=== PATIENT | male | born 1950 | race Caucasian/White ===

== ENCOUNTER → 2016-06-02 | Outpatient (CLI) | payer BC, OTHER ==
[~2016-06-02] VITALS: Ht 177.8 cm; Wt 134.1 kg
[~2016-06-02] MED LIST: ADULT LOW DOSE81 MG PO; ALLEGRA ALLERG180 MG PO; COUMADIN 1MG TAB1 M1 PO; COUMADIN 2 MG TA2 M1 PO; COUMADIN 5 MG TA5 M1 PO; COUMADIN7.5 MG PO; ENOXAPARIN30 MG/0.3 SQ; FLEXERIL PO; GABAPENTIN100 MG PO; HYDROCODON-ACE1 EAC5 PO; HYDROCODON-ACE1 EAC7 PO; HYDROCODON-ACE1 EACH PO; HYDROCODONE-AP1 EA11 PO; HYDROCODONE-AP1 EAC6 PO; HYDROCODONE-AP1 EACH PO; IBUPROFEN 200200 M1 PO; JANTOVEN1 MG PO; JANTOVEN5 MG PO; LISINOPRIL10 MG PO; LISINOPRIL20 MG PO; LOVENOX; MUCINEX DM ER1 EACH PO; OXYCODONE-ACET1 EAC2 PO; OXYCONTIN10 M1 PO; SINGULAIR 10 MG10 M1 PO; VITAMIN D1000 UNI1 PO; ZOHYDRO PO; [UNRECOGNIZED DRUG - OTHER] PO
--- NOTE | ~2016-06-02 | HPC ---
[facility] [place] [address] [place] [address] PAIN MANAGEMENT CONSULTATION Name: NEYMAR CARMICHAEL II Room #: REG [facility] Aman#: [id number] Admission: 06/02/16 Attend Phys: Trevor Frausto MD Discharge: Date of : 48 Report #: [id number] THIS REPORT FOR: //name// CC: Patrizia Frausto DATE OF SERVICE: 06/02/2016 REASON FOR VISIT: Followup visit for low back pain with left lumbar radiculopathy. HISTORY OF PRESENT ILLNESS: The patient returns to pain clinic today for an epidural injection. He has discontinued Coumadin. His INR is 1.1. He also has cardiolipin antibody syndrome related to lupus anticoagulation disorder and is prone to thrombosis. We discussed the importance of reinitiating his anticoagulation as soon as possible following the injection. He will begin his Coumadin today and has 1 more dose of Lovenox to take tonight. I also discussed his upcoming knee replacement. He has severe osteoarthritis of the left knee and also will be performing surgery at the orthopedic institute in about 5 weeks. The epidural injection today should be far enough away from a surgery that I do not think will need to have a steroid replacement. He is hopeful that the improvement in his sciatica that occurs following his epidural injection will allow him to improve in his rehabilitation. All medications were reviewed and reconciled. He receives medication from outside under terms of an opioid agreement, which was reviewed and resigned today. It has been over a year. He uses hydrocodone up to 4 a day. We would like him to continue with that dose. No other medication changes since his last visit. MEDICATION ALLERGIES: Include SHELLFISH and MILK CONTAINING PRODUCTS which caused GI upset. We will avoid the use of iodinated contrast materials for his injections. PHYSICAL EXAMINATION: A very pleasant 65-year-old. His blood pressure is 149/91, heart rate 91. His BMI is 42.2. He moves from a sitting to standing position, walks with a cane. There is a fall risk. He has straight leg raising discomfort on the left, which also reproduces pain in his left knee. Sensation is diminished in the lower extremities bilaterally. He has focal weakness in the left thigh, which I believe is related to from the quadriceps and his knee. IMPRESSION: 1. Chronic low back pain with radiculopathy on the left L4-L5. [facility] [address] [place] [address] PAIN MANAGEMENT CONSULTATION Name: NEYMAR CARMICHAEL II Room #: REG CHI Newton#: [id number] Admission: 06/02/16 Attend Phys: Trevor Frausto MD Discharge: Date of : 48 Report #: [id number] 2. Morbid obesity. 3. Osteoarthritis, bilateral knees, left worse than right, anticipated upcoming knee surgery replacement. 4. Management of high risk medication with the terms of an opioid agreement under the CDC guidelines. PLAN: 1. I renewed his medications, hydrocodone 10/325 one tablet 4 times daily. All aspects of our agreement reviewed. 2. Epidural steroid injection under fluoroscopic guidance. DESCRIPTION OF PROCEDURE: He was taken to the fluoroscopy suite for treatment and placed prone. Skin prepped with ChloraPrep and skin anesthetized over the L4-L5 interspace. Using biplanar fluoroscopic views, I advanced the needle into the epidural space. There was no blood or CSF aspirated. A 1 mL of Omnipaque injected demonstrating good spread of dye into the epidural space. It was followed then by 3 mL of 0.5% lidocaine mixed with 80 mg of triamcinolone. He tolerated the procedure well, was observed for 45 minutes and discharged. There were no complications. He was discharged and we will see him after surgery. By: [id number] Trevor Frausto MD /nt
[2016-06-02 09:32] LABS: INR 1.1; PROTIME 11.4 Seconds (9.3-11.4)
[2016-06-02 09:43] VITALS: BP 149/91
== END | disposition home or self-care (01) ==
LOC: PAIN 06:35
PROVIDERS: Anesthesiology Pain Medicine
DX: M54.16 Radiculopathy, lumbar region (principal); G89.29 Other chronic pain; M17.0 Bilateral primary osteoarthritis of knee; E66.01 Morbid (severe) obesity due to excess calories; F11.20 Opioid dependence, uncomplicated; Z68.41 Body mass index [BMI] 40.0-44.9, adult

== ENCOUNTER → 2016-08-04 | Outpatient (CLI) | payer BC, OTHER ==
[~2016-08-04] VITALS: Ht 180.3 cm; Wt 133.8 kg
--- NOTE | ~2016-08-04 | HPC ---
[facility] [address] [place] [address] [place] [address] PAIN MANAGEMENT CONSULTATION Name: NEYMAR CARMICHAEL II Room #: REG [facility].#: [id number] Admission: 08/04/16 Attend Phys: Trevor Frausto MD Discharge: Date of : 48 Report #: [id number] THIS REPORT FOR: //name// CC: Patrizia Frausto DATE OF SERVICE: 08/04/2016 DATE OF REGISTRATION: 08/04/2016. SUBJECTIVE: The patient returns to pain clinic today. Unfortunately, he was unable to undergo his knee replacement surgery due to an elevated white count. He has been rescheduled. 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 He is prone to thrombosis. There are a number of considerations being undertaken prior to his surgery. He seems a little bit depressed today. I think that the ongoing pain and the lack of ability to undergo surgery worried him. He complains that his back pain is about 3, but his knee pain is 10/10. Medication has been helpful for that. PHYSICAL EXAMINATION: VITAL SIGNS: Continues to struggle with weight, BMI is now 41.2. Blood pressure is 148/95, heart rate 86, respirations 16. He is 5 feet 11 inches (180 cm) and 295 pounds. EXTREMITIES: Both knees are being protected, bilateral braces. There is tenderness and swelling. IMPRESSION: 1. Chronic back pain with radiculopathy. 2. Morbid obesity. 3. Osteoarthritis, bilateral knees with left knee the worst. Surgery for total knee replacement scheduled once again. 4. Management of high-risk medications under terms of an opioid agreement. PLAN: I renewed hydrocodone 10/325 one tablet 4 times a day. We talked about the opioid crisis, safeguarding medications, receiving medications from one physician and one pharmacy. Urine drug screens will be performed as necessary. Followup visit planned in 3 months. By: [id number] Trevor Frausto MD /nt
[2016-08-04 14:28] VITALS: BP 148/95
== END | disposition home or self-care (01) ==
LOC: PAIN 07:08
DX: M54.16 Radiculopathy, lumbar region (principal); G89.29 Other chronic pain; M17.0 Bilateral primary osteoarthritis of knee; F11.20 Opioid dependence, uncomplicated; E66.01 Morbid (severe) obesity due to excess calories; Z68.41 Body mass index [BMI] 40.0-44.9, adult

== ENCOUNTER → 2016-09-01 | Outpatient (CLI) | payer BC, OTHER ==
[~2016-09-01] VITALS: Ht 180.3 cm; Wt 133.4 kg
--- NOTE | ~2016-09-01 | HPC ---
[facility] [address] [address] PAIN MANAGEMENT CONSULTATION Name: NEYMAR CARMICHAEL II Room #: REG LINDSEYJoseline Holder.#: [id number] Admission: 09/01/16 Attend Phys: Trevor Frausto MD Discharge: Date of : 48 Report #: [id number] THIS REPORT FOR: //name// CC: Patrizia Frausto DATE OF SERVICE: 09/01/2016 Followup visit for bilateral osteoarthritis of the knees and low back pain with radiculopathy. The patient returns to pain clinic today for an epidural injection. This has been very helpful for his spondylosis and spinal stenosis with radiculopathy. He also had questions for me regarding potential treatments for his knees. He was seen at a [facility] in [place] and they offered him amniotic fluid stem cell injections. This is not covered by insurance and the cost projected was $13,000. The science is interesting. My partner and I are both interested in it; however, at this time, we are not certain whether or not stem cells derived from bone marrow, adipose tissue or amniotic stem sells may provide the best avenue. We are also concerned by the cost of this procedure given that it has not been vetted fully in the medical community. Essentially rolling a $13,000 instead of dice to determine whether or not it will provide lasting relief. I did acknowledge that the likelihood of there would be a negative consequence from the injection is small, but the retirement benefits are certainly anecdotal at this point or related to small studies. If he wants to spend this money on it, he is welcome to do so, but I told him that at this point if I were in the shoes for wearing his knees, I would be reluctant to do so. He sees Dr. Bonnie Delarosa who has offered replacement surgery for each knee, so they have progressed fairly significantly. He has been reluctant to go forward with that. He is 65 years of age. I do not think that longevity of the joint is necessarily consideration and many individuals have benefitted from knee replacement. Men seemed to do better than women. We spent some time discussing that option as well. His low back pain with radiculopathy has always responded very favorably to epidural injection at L4-L5. He has cardiolipin antibody syndrome, has been on anticoagulation therapy, which he discontinued for appropriate amount of time for his injection. Protime is 1.0. PHYSICAL EXAMINATION: Pleasant, outgoing jabari, walks with antalgic features. He has soft braces on both knees today. He ambulates with antalgic features. Pain and tenderness across his low back, positive straight leg raising is noted. He [address] [address] PAIN MANAGEMENT CONSULTATION Name: NEYMAR CARMICHAEL II Room #: REG [facility] Newton#: [id number] Admission: 09/01/16 Attend Phys: Trevor Frausto MD Discharge: Date of : 49 Report #: [id number] is morbidly obese at 295 pounds. Blood pressure is 142/96, heart rate is 84, respirations 14. IMPRESSION: 1. Chronic low back pain with radiculopathy. 2. Morbid obesity. 3. Osteoarthritis, bilateral knees. 4. Management of high risk medications under terms of an opioid agreement. PLAN: Epidural steroid injection under fluoroscopic guidance. Procedure was performed. The patient was taken to fluoroscopic suite, placed prone. Skin prepped with ChloraPrep. Skin anesthetized over the L4-L5 interspace. A 20-gauge Tuohy epidural needle advanced first attempt in the epidural space with loss of resistance. No blood or CSF was aspirated. 1 mL of Omnipaque was injected and spread of dye observed in the epidural space followed by 3 mL of 0.5% lidocaine mixed with 80 mg of triamcinolone. He tolerated the procedure well, was observed for 45 minutes and discharged. Followup visit planned as needed. Hydrocodone was renewed for him under terms of an opioid agreement. Safeguarding of medication was reviewed. By: [id number] Trevor Frausto MD /nt
[2016-09-01 11:20] LABS: PROTIME 10.8 Seconds (9.3-11.4)
[2016-09-01 11:38] VITALS: BP 141/86
== END | disposition home or self-care (01) ==
LOC: PAIN 06:42
PROVIDERS: Anesthesiology Pain Medicine
DX: M54.16 Radiculopathy, lumbar region (principal); G89.29 Other chronic pain; M17.0 Bilateral primary osteoarthritis of knee; E66.01 Morbid (severe) obesity due to excess calories; F11.20 Opioid dependence, uncomplicated

== ENCOUNTER → 2016-10-27 | Outpatient (CLI) | payer BC, OTHER ==
[~2016-10-27] VITALS: Ht 180.3 cm; Wt 133.4 kg
--- NOTE | ~2016-10-27 | HPC ---
[facility] [address] [address] [place] [address] PAIN MANAGEMENT CONSULTATION Name: NEYMAR CARMICHAEL II Room #: REG [facility].#: [id number] Admission: 10/27/16 Attend Phys: Trevor Frausto MD Discharge: Date of : 49 Report #: [id number] THIS REPORT FOR: //name// CC: Patrizia Frausto DATE OF SERVICE: 10/27/2016 DATE OF REGISTRATION: 10/27/2016 Followup visit for osteoarthritis, bilateral knees. The patient returns to pain clinic today and we discussed his medication at length. I made an error at his last visit and did not sign his 4-week prescription. This led to a series of phone calls and miscommunication between him and our office. he uses appropriately. He uses it for pain. He is not addicted. He is grateful for the relief he gets. He has few side effects. He has been using 1 pharmacy except when he switched because of cost issues. His urine drug screens were appropriate for his current use. His daily dose of hydrocodone is 40 mg, which relates to morphine as 40 morphine mg equivalents well within the range of the CDC guideline. He is being treated appropriately at this time for his severe arthritis and is anxious for the time when he can have his knees replaced. Pain score today is 7/10. It is worse with prolonged sitting, walking and standing. PHYSICAL EXAMINATION: Pleasant, little bit depressed of affect today He is concerned about all the phone calls that were made because of the prescription error. I think we have clarified that now. His blood pressure is 149/83, pulse of 101, respirations 16. BMI is 41. He has braces on both knees, bilateral local tenderness. IMPRESSION: 1. Chronic osteoarthritis pain, bilateral knees. 2. Morbid obesity. 3. Low back pain with radiculopathy. 4. Management of high risk medication under terms of an opioid agreement. PLAN: I renewed his medications for 3 months. His current dose will be hydrocodone 10/325, #120 one tablet q. 6 hours p.r.n. as directed. I will see [facility] [address] [place] [address] PAIN MANAGEMENT CONSULTATION Name: NEYMAR CARMICHAEL Room #: REG [facility].#: [id number] Admission: 10/27/16 Attend Phys: Trevor Frausto MD Discharge: Date of : 49 Report #: [id number] him back in the pain clinic in December. Importance of safeguarding medication in today's world was reviewed as most important requirement. By: [id number] Trevor Frausto MD /nt
[2016-10-27 08:56] VITALS: BP 149/93
== END ==
LOC: PAIN 06:40
DX: M17.0 Bilateral primary osteoarthritis of knee (principal); M54.16 Radiculopathy, lumbar region; E66.01 Morbid (severe) obesity due to excess calories

== ENCOUNTER → 2016-11-24 | Outpatient (CLI) | payer BC, OTHER ==
[~2016-11-24] VITALS: Ht 180.3 cm; Wt 133.6 kg
--- NOTE | ~2016-11-24 | HPC ---
[facility] [address] [address] [place] [address] PAIN MANAGEMENT CONSULTATION Name: NEYMAR CARMICHAEL II Room #: REG [facility].#: [id number] Admission: 11/24/16 Attend Phys: Trevor Frausto MD Discharge: Date of : 48 Report #: [id number] THIS REPORT FOR: //name// CC: Patrizia Frausto DATE OF SERVICE: 11/24/2016 Followup visit for lumbar radiculopathy and osteoarthritis, bilateral knees. The patient is here today for another epidural injection. He has postponed his knee surgery. He got really good relief with the last injection provided at L5-S1 for nearly 2-1/2 to 3 months. It helps him get around and ambulate with less of the radicular component of his pain. I also provide him with medication under terms of an opioid agreement. He has been on his medication appropriately. He takes no more than 40 mg of hydrocodone a day on an as needed basis under the CDC guideline of 50 MME. Today, he reports his pain level at 8-9 in a radicular radiating component down the posterior lateral aspect of legs and his knees continue to create quite a bit of discomfort. Majority of his radicular pain is on the left. It radiates all the way to the foot. MEDICATIONS: Reviewed and reconciled. He has been off his blood thinner now for 1 week with an INR of 1.0. He has been on Lovenox and took a small dose of 30 mg over 12 hours ago. We have ____ his Lovenox for 12 hours at his current dose prior to his injection without difficulty. Potential risks and benefits were reviewed. IMPRESSION: 1. Low back pain with radiculopathy, left L5-S1 distribution. He also had some L3 pain as well. He has responded best with injections at L5-S1. 2. Morbid obesity. 3. Osteoarthritis, bilateral knees. 4. Management of high risk medications. PROCEDURE: Epidural steroid injection under fluoroscopic guidance. PROCEDURE NOTE: He was taken to the fluoroscopic suite, placed prone, skin prepped with ChloraPrep. Skin anesthetized over L5-S1. A 20-gauge Tuohy epidural needle advanced on the first attempt into the epidural space with loss of resistance. There was no blood or CSF aspirated. 1 mL of Omnipaque was injected with good spread of dye observed into the epidural space extending cephalad. It was followed by 3 mL of 0.5% lidocaine mixed with 80 mg of [facility] [address] [place] [address] PAIN MANAGEMENT CONSULTATION Name: NEYMAR CARMICHAEL II Room #: REG [facility] Aman#: [id number] Admission: 11/24/16 Attend Phys: Trevor Frausto MD Discharge: Date of : 48 Report #: [id number] triamcinolone. He tolerated the procedure well. He was observed for 45 minutes and discharged. Followup visit planned in the pain clinic as needed. I will continue to provide his medication for him under terms of our opioid agreement. By: [id number] Trevor Frausto MD /nt
[2016-11-24 09:47] LABS: PROTIME 10.4 Seconds (9.3-11.4)
[2016-11-24 10:10] VITALS: BP 124/81
[2016-11-24 10:12] VITALS: BP 124/81
== END | disposition home or self-care (01) ==
LOC: PAIN 07:00
PROVIDERS: Anesthesiology Pain Medicine
DX: M54.16 Radiculopathy, lumbar region (principal); M17.0 Bilateral primary osteoarthritis of knee; E66.01 Morbid (severe) obesity due to excess calories; Z79.891 Long term (current) use of opiate analgesic; Z79.01 Long term (current) use of anticoagulants; Z79.82 Long term (current) use of aspirin; Z79.899 Other long term (current) drug therapy; Z91.011 Allergy to milk products; Z98.890 Other specified postprocedural states

== ENCOUNTER → 2017-05-01 | Outpatient (CLI) | payer BC, OTHER ==
[~2017-05-01] VITALS: Ht 180.3 cm; Wt 137.0 kg
[~2017-05-01] MED LIST changes: +ZOLPIDEM TARTRA10 MG PO
--- NOTE | ~2017-05-01 | HPC ---
[facility] [address] [place] [address] PAIN MANAGEMENT CONSULTATION Name: NEYMAR CARMICHAEL II Room #: REG [facility] Susanne.#: [id number] Admission: 05/01/17 Attend Phys: Trevor Frausto MD Discharge: Date of : 48 Report #: [id number] THIS REPORT FOR: //name// CC: Patrizia Frausto DATE OF SERVICE: 05/01/2017 Followup visit for lumbar radiculopathy and osteoarthritis. The patient is here today in the pain clinic a bit discouraged because of recurring pain. He is here today for a lumbar epidural injection. He is continuing to have quite a bit of pain in his knees. He has had problems with DVT. Because of ongoing pain, he has had difficulty with his exercise program and has gained back much of the weight that he lost during his walking program described elsewhere in this record. He is discouraged about that. His hope is that he can continue to walk freely with minimal pain and to have his knees replaced. His ORT opioid risk tool assessment is 1 and his pain impact score is elevated somewhat to 58/70. It should be noted that his enjoyment of life interference from pain is 9/10 suggesting the significant manner in which this pain affects him. He would like an epidural steroid injection. MRI shows that he has extension of disk into the neural foramina at L4-L5 and L5-S1, which has responded nicely to midline epidural injection. PHYSICAL EXAMINATION: GENERAL: The patient is pleasant, alert and oriented, without signs of overmedication. His affect is mildly depressed today. VITAL SIGNS: His blood pressure is 138/93, respiratory rate is 16. He is able to move independently from sitting to standing position. He is not a fall risk, but he walks with a broad-based gait. Straight leg raising bilaterally is positive. He has diminished sensation below the knees in the L4 distribution. He has tenderness bilaterally around the knees and was wearing articulating braces. IMPRESSION: 1. Osteoarthritis of the knees bilaterally. 2. Lumbar radiculopathy. 3. Management of high risk medications under terms of written opioid agreement. We reviewed his agreement, the CDC guidelines. His MME is 40. He has a [place] address and fills his [place] in [place]. I did not perform a K-TRACS for that purpose. RECOMMENDATION: Epidural steroid injection under fluoroscopic guidance. [address] [address] PAIN MANAGEMENT CONSULTATION Name: NEYMAR CARMICHAEL II Room #: REG [facility] Newton#: [id number] Admission: 05/01/17 Attend Phys: Trevor Frausto MD Discharge: Date of : 48 Report #: [id number] PROCEDURE: He was taken to fluoroscopic suite, placed prone, skin prepped with ChloraPrep. Skin was anesthetized over the L4-L5 interspace. A 20-gauge Tuohy epidural needle was advanced in the epidural space using loss of resistance technique. There was no blood or CSF aspirated, 1 mL of Omnipaque injected. Good spread of dye observed into the epidural space followed by 3 mL of 0.5% lidocaine mixed with 80 mg of triamcinolone. He tolerated the procedure well and was observed for 45 minutes and discharged with a followup visit scheduled in the pain clinic on an as needed basis. <ELECTRONICALLY SIGNED> By: Trevor Frausto MD 05/17/17 [id number] [id number] Trevor Frausto MD /nt
[2017-05-01 11:59] LABS: PROTIME 10.7 Seconds (9.3-11.4)
[2017-05-01 12:43] VITALS: BP 128/84
== END | disposition home or self-care (01) ==
LOC: PAIN 07:36
PROVIDERS: Anesthesiology Pain Medicine
DX: M54.16 Radiculopathy, lumbar region (principal); M17.0 Bilateral primary osteoarthritis of knee; Z79.899 Other long term (current) drug therapy; Z98.890 Other specified postprocedural states

== ENCOUNTER → 2017-08-21 | Outpatient (CLI) | payer BC, OTHER ==
[~2017-08-21] VITALS: Ht 180.3 cm; Wt 136.4 kg
[~2017-08-21] MED LIST changes: -ZOLPIDEM TARTRA10 MG PO
--- NOTE | ~2017-08-21 | HPC ---
[facility] [address] [facility] [place] [address] PAIN MANAGEMENT CONSULTATION Name: NEYMAR CARMICHAEL II Room #: REG [facility].#: [id number] Admission: 08/21/17 Attend Phys: Trevor Frausto MD Discharge: Date of : 49 Report #: [id number] THIS REPORT FOR: //name// CC: Patrizia Fry DATE OF SERVICE: 08/21/2017 Followup visit for low back pain with radiculopathy and osteoarthritis. The patient is here today in followup. He has severe osteoarthritis and has just recently had his left knee replaced. From the very first day, he has done well. Great range of motion in the knee, he is doing very well. He is hopeful to have his knee done soon. His second problem and the one that he is here for today is the low back pain with radiculopathy. He has pain that has been consistently alleviated in the past with epidural injections providing months of relief. The pain begins in his back and radiates into his left leg and foot. Has a radicular component to it. He is here today for another epidural injection. He is off all blood thinning medications. He has apparently had a new diagnosis and has been told that he no longer has coagulation issue related to lupus. He has been following with Dr. Quezada at [facility] Hematology[facility]On[facility]. MEDICATIONS: Reviewed and reconciled. He takes hydrocodone 4 times a day under terms of written opioid agreement. I spent time with him today reviewing his MME and the CDC guideline. Questions were answered. We reviewed his opioid agreement. PHYSICAL EXAMINATION: GENERAL: He is pleasant, alert and oriented. He moves from sitting to standing position. He walks with slightly antalgic gait. VITAL SIGNS: Blood pressure is 131/79, heart rate is 93. He is 5 feet 11 inches, 300 pounds with a BMI of 42. MUSCULOSKELETAL: Examination of the spine reveals tenderness across the lumbosacral segment, pain with forward flexion and extension. Bilateral straight leg raising discomfort, worse on the left. Left knee reveals a scar that is well healed. Good range of motion is noted in the knee. IMPRESSION: 1. Chronic low back pain with radiculopathy on the left L4-L5 distribution. 2. Osteoarthritis, status post replacement of the knee. 3. Management of high risk medications with opioids under terms of an opioid agreement. We reviewed the agreement. He had functional assessment tool scores at 58. Risk assessment tool is possible 12 and [place] [id number] PAIN MANAGEMENT CONSULTATION Name: AMOLGORDYSARAHI Narvaez Room #: REG Joseline Newton#: [id number] Admission: 08/21/17 Attend Phys: Trevor Frausto MD Discharge: Date of : 48 Report #: [id number] addiction. PLAN: Lumbar epidural steroid injection, L4-L5 under fluoroscopic guidance. PROCEDURE: He was taken to fluoroscopic suite, placed prone, skin prepped with ChloraPrep. Skin anesthetized over L4-L5. A 20-gauge Tuohy epidural needle advanced first attempt in the left epidural space using loss of resistance. There was no blood nor CSF aspirated. 1 mL of Omnipaque was injected with good spread of dye observed in the epidural space followed by 3 mL of 0.5% lidocaine mixed with 80 mg of triamcinolone. He tolerated the procedure well and was observed for 45 minutes and discharged. I have written prescriptions for hydrocodone 10/325 one tablet 4 times daily with release prescriptions for 4 and 8 weeks. He understands that his morphine equivalent dose is 40. Plan to see him back in the pain clinic on an as needed basis at least in 3 months for renewal of his medications. Buccal drug screens will be performed as needed. By: [id number] Trevor Frausto MD /nt
[2017-08-21 12:38] VITALS: BP 131/79
== END | disposition home or self-care (01) ==
LOC: PAIN 06:54
DX: M54.16 Radiculopathy, lumbar region (principal); G89.29 Other chronic pain; M17.12 Unilateral primary osteoarthritis, left knee; Z79.899 Other long term (current) drug therapy; Z98.890 Other specified postprocedural states; Z79.82 Long term (current) use of aspirin

== ENCOUNTER → 2017-09-11 | Outpatient (CLI) | payer BC, OTHER ==
[~2017-09-11] VITALS: Ht 180.3 cm; Wt 134.5 kg
--- NOTE | ~2017-09-11 | HPC ---
[facility] [address] [place] [address] PAIN MANAGEMENT CONSULTATION Name: NEYMAR CARMICHAEL II Room #: REG LINDSEYJoseline Newton#: [id number] Admission: 09/11/17 Attend Phys: Trevor Frausto MD Discharge: Date of : 48 Report #: [id number] THIS REPORT FOR: //name// CC: Patrizia Frausto DATE OF SERVICE: 09/11/2017 REASON FOR VISIT: Followup visit for chronic back pain with radiculopathy. HISTORY OF PRESENT ILLNESS: The patient returns to the Pain Clinic today in followup to discuss his plan to pursue some accommodation at work for his lumbar radiculopathy. I spent 25 minutes with him today reviewing his condition. He continues to complain of pain in the left leg that radiates from the low back. Pain developed in 2011 and since that time, he has had multiple epidural injections generally with good improvement and we have been managing his pain also with medication. He is obese and he has taken well to recommendations for weight loss, having weight lost extensive weight over 2 years ago, but it has been difficult for him to continue with ongoing exercise due to his persistent low back pain and he has developed severe pain in the knee with osteoarthritis. He had a left knee replacement performed successfully and is hoping to have the right knee done sometime in the future. For the time being, we will continue to manage his pain with hydrocodone 10/325 one tablet 4 times daily, which he takes without side effect and is grateful for the relief that it provides him allowing to continue with some level of work. He understands the CDC guideline and his opioid agreement, which we reviewed. IMPRESSION: 1. Chronic low back pain with radiculopathy on the left. 2. Bilateral osteoarthritis involving the knees, status post left knee replacement. 3. Management of high risk medications with 40 MME hydrocodone 10/325 four times daily. 4. Morbid obesity. PLAN: Follow up as needed for future epidural injections and/or medication management. By: 1705 Trevor Frausto MD /nt
[2017-09-11 13:40] VITALS: BP 123/78
== END ==
LOC: PAIN 06:44
DX: Z09 Encounter for follow-up examination after completed treatment for conditions other than malignant neoplasm (principal); M17.0 Bilateral primary osteoarthritis of knee; E66.01 Morbid (severe) obesity due to excess calories; Z96.651 Presence of right artificial knee joint; Z79.899 Other long term (current) drug therapy

== ENCOUNTER → 2018-02-05 | Outpatient (CLI) | payer BC, OTHER ==
[~2018-02-05] VITALS: Ht 180.3 cm; Wt 139.6 kg
[~2018-02-05] MED LIST changes: +ZOLPIDEM TARTRA10 MG PO
[2018-02-05 10:42] VITALS: BP 138/81
--- NOTE | 2018-02-05 10:56 | NUR ---
Pain Clinic Assessment: 1. History of Osteoarthritis: YES History of Rheumatoid Arthritis: Not Applicable 2. Height: 5 ft. 11 in. 180.3 cm. Weight: 307.8 lb. oz. 139.618 kg. Patient's BMI: 42.9 3. Vital Signs: BP: 138/81 Pulse: 89 Resp: 16 Temp: 02 Sat: 97 ECG Mon: 4. Pain Intensity: 7-8 5. Fall Risk: Dizziness: N Needs help standing or walking: Y Fallen in the last 3 months: N Fall risk comments: 6. Patient on Blood Thinner: None 7. History of Hypertension: Y 8. Opioid Therapy greater than 6 weeks: Y Opiate Contract Signed: 06/02/16 9. Risk Assessment Tool Provided: 1-LOW RISK 10. Functional Assessment Tool: 58 11. Recreational Drug Use: Never Drug Type: Tobacco Use: Never Smoker Tobacco Type: Amount or Packs/day: How Many Years: Alcohol Use: No Frequency: Quant:
--- NOTE | 2018-02-15 15:38 | HPC ---
[facility] [address] [place] [address] PAIN MANAGEMENT CONSULTATION Name: AMOLGORDYSARAHI Narvaez II [id number] Admission: 02/05/18 Attend Phys: Trevor Frausto MD Discharge: Date of : 48 Report #: [id number] THIS REPORT FOR: //name// CC: Patrizia Frausto DATE OF SERVICE: 02/05/2018 CHIEF COMPLAINT: Followup visit for chronic low back pain with radiculopathy and cervical radiculopathy. The patient is here today hoping for an epidural injection. His last injection was in October. They provided up to 75% relief for a month or two and is gradually returning. PQRS: Shows him as morbidly obese gentleman, 5 feet 11 inches, 307 pounds. His BMI is 42.9. His blood pressure is 138/81. He has history of osteoarthritis and joint replacements, bilateral knees. His left is doing well. He has chronic pain today. Intensity is 7-8/10. He is a fall risk. He is on no blood thinners. No history of hypertension. He has an opioid agreement signed in 2017 and is at low risk for addiction. He does not use tobacco or alcohol. His functional assessment tool is 58/70, suggesting significant impact of his pain on his activities of daily living. I reviewed his x-rays, which show degenerative disk disease, spondylosis and a small left paracentral herniation at L1-L2 as well as disk extension of the foramina at L4-L5 and L5-S1 causing foraminal stenosis, more prominent on the left than the right, but both involved. IMPRESSION: 1. Chronic low back pain with radiculopathy. 2. Morbid obesity. 3. Diffuse osteoarthritis. PROCEDURE: Lumbar epidural steroid injection under fluoroscopic guidance. DESCRIPTION OF PROCEDURE: He was taken to fluoroscopic suite, placed prone, skin prepped with ChloraPrep. Skin anesthetized over the L4-L5 interspace. A 20-gauge Tuohy epidural needle advanced in the epidural space with loss of resistance technique. There was no blood or CSF aspirated. 1 mL of Omnipaque injected. Good spread of dye observed into the epidural space followed by 0.5% lidocaine mixed with 3 mL mixed with 80 mg of triamcinolone. He tolerated the [address] [address] PAIN MANAGEMENT CONSULTATION Name: NEYMAR CARMICHAEL Room #: [facility] Aman#: [id number] Admission: 02/05/18 Attend Phys: Trevor Frausto MD Discharge: Date of : 48 Report #: [id number] procedure well, was observed for 45 minutes and discharged. Follow up as needed. <ELECTRONICALLY SIGNED> By: Trevor Frausto MD 02/15/18 1538 [id number] Trevor Frausto MD /nt
== END ==
LOC: PAIN 07:47
DX: M54.16 Radiculopathy, lumbar region (principal); G89.29 Other chronic pain; M19.90 Unspecified osteoarthritis, unspecified site; E66.01 Morbid (severe) obesity due to excess calories; Z96.653 Presence of artificial knee joint, bilateral; Z68.41 Body mass index [BMI] 40.0-44.9, adult; Z98.890 Other specified postprocedural states; Z79.82 Long term (current) use of aspirin; Z79.891 Long term (current) use of opiate analgesic

== ENCOUNTER → 2018-04-23 | Outpatient (CLI) | payer BC, OTHER ==
[~2018-04-23] VITALS: Ht 180.3 cm; Wt 143.9 kg
[2018-04-23 13:44] VITALS: BP 139/90
--- NOTE | 2018-04-23 13:53 | NUR ---
Pain Clinic Assessment: 1. History of Osteoarthritis: YES BILAT HANDS BILAT HIPS AND KNEES History of Rheumatoid Arthritis: Not Applicable 2. Height: 5 ft. 11 in. 180.3 cm. Weight: 317.2 lb. oz. 143.881 kg. Patient's BMI: 44.3 3. Vital Signs: BP: 139/90 Pulse: 94 Resp: 20 Temp: 02 Sat: 97 ECG Mon: 4. Pain Intensity: 8 5. Fall Risk: Dizziness: N Needs help standing or walking: Y Fallen in the last 3 months: Y Fall risk comments: 6. Patient on Blood Thinner: None 7. History of Hypertension: Y 8. Opioid Therapy greater than 6 weeks: Y Opiate Contract Signed: 06/02/16 9. Risk Assessment Tool Provided: 1-LOW RISK 10. Functional Assessment Tool: 58 11. Recreational Drug Use: Never Drug Type: Tobacco Use: Never Smoker Tobacco Type: Amount or Packs/day: How Many Years: Alcohol Use: No Frequency: Quant:
--- NOTE | 2018-04-25 15:34 | HPC ---
[facility] [place] [address] [place] [address] PAIN MANAGEMENT CONSULTATION Name: NEYMAR CARMICHAEL II Room #: REG [facility]#: [id number] Admission: 04/23/18 Attend Phys: Trevor Frausto MD Discharge: Date of : 48 Report #: [id number] THIS REPORT FOR: //name// CC: Patrizia Frausto DATE OF SERVICE: 04/23/2018 Followup visit for lumbar radiculopathy. The patient returns to clinic today for an epidural injection. He continues to gain weight. In his last visit, his weight was 307 pounds. He is now 317 with a BMI up from 42 to 44. He is continuing to have increasing pain in his low back with pain radiating through his left hip and down into his leg. He also has arthropathy. He has had knee replacement on the left and he is wearing a brace on his right. He has pain in his right hip and there is some question about how much of his pain is radicular and how much of it is related to arthritis. PQRS review demonstrates that he has widespread osteoarthritis, morbidly obese with a BMI of 44.3. He is on an opioid agreement and is considered at low risk for addiction with an opioid risk tool score of 1. His functional assessment, however, is high at 58 suggesting significant interference with his day-to-day activities by his pain. Denies use of tobacco and alcohol. He is treated for hypertension by his primary care physician. He is on no blood thinners. PHYSICAL EXAMINATION: GENERAL: Pleasant gentleman. VITAL SIGNS: He is 5 feet 11 inches, weight 317 pounds, blood pressure 139/90, heart rate 94, respirations 20. Moves from a sitting to standing position, walks with a waddling gait. He has a brace on his right leg. CHEST: Clear. CARDIAC: Rhythm is regular. ABDOMEN: Soft and obese. MUSCULOSKELETAL: He has tenderness across his lumbosacral segment. Bilateral straight leg raising far worse on the right, reproduces pain into the right hip and down the posterior lateral aspect of the right leg. There is no pain with internal and external rotation of the hip to suggest hip arthritis at this time. IMPRESSION: 1. Chronic low back pain with radiculopathy. 2. Morbid obesity. 3. Diffuse multi-joint osteoarthritis, particularly knees. PROCEDURE: Epidural steroid injection L5-S1 right paramedian under fluoroscopic [address] [address] PAIN MANAGEMENT CONSULTATION Name: NEYMAR CARMICHAEL II [facility] [id number] Admission: 04/23/18 Attend Phys: Trevor Frausto MD Discharge: Date of : 48 Report #: [id number] guidance. DESCRIPTION OF PROCEDURE: He was taken to the fluoroscopic suite, placed prone, skin prepped with ChloraPrep. Skin was anesthetized over the L5-S1 interspace and a 6-inch 20-gauge Tuohy epidural needle advanced first attempt into the epidural space with loss of resistance technique. There was no blood or CSF aspirated. 1 mL of Omnipaque injected. Good spread of dye observed followed by 3 mL of 0.5% lidocaine mixed with 80 mg triamcinolone. He tolerated the procedure well and was taken to recovery room with marked reduction in pain. I renewed his medications under terms of our agreement hydrocodone 7.5/325 four tablets daily. He will safeguard his medications carefully. We will follow up at 3-month intervals. I checked the prescription drug monitoring program, there are no unexpected entries. <ELECTRONICALLY SIGNED> By: Trevor Frausto MD 04/25/18 1534 [id number] [id number] Trevor Frausto MD /nt
== END | disposition home or self-care (01) ==
LOC: PAIN 07:14
DX: M54.16 Radiculopathy, lumbar region (principal); E66.01 Morbid (severe) obesity due to excess calories; M17.10 Unilateral primary osteoarthritis, unspecified knee; I10 Essential (primary) hypertension; Z68.41 Body mass index [BMI] 40.0-44.9, adult; Z88.8 Allergy status to other drugs, medicaments and biological substances; Z91.013 Allergy to seafood; Z79.82 Long term (current) use of aspirin; Z79.899 Other long term (current) drug therapy

== ENCOUNTER → 2018-05-21 | Outpatient (CLI) | payer BC, OTHER ==
[~2018-05-21] VITALS: Ht 180.3 cm; Wt 136.5 kg
--- NOTE | ~2018-05-21 | HPC ---
[facility] [address] [address] PAIN MANAGEMENT CONSULTATION Name: NEYMAR CARMICHAEL II Room #: REG [facility] Aman#: [id number] Admission: 05/21/18 ������������������ Attend Phys: Trevor Frausto MD Discharge: ������������������ Date of : 48 Report #: [id number] THIS REPORT FOR: //name// CC: Patrizia Frausto DATE OF SERVICE: 05/21/2018 Followup visit for chronic low back pain with radiculopathy. The patient is here today in the pain clinic to discuss next steps. His pain continues to radiate down into his leg. Previously, he had noted the pain was on the left; however, today, he complains mostly of right low back pain radiating through his buttocks and down into the area behind his knee. He wears a brace in that location. He has bilateral foot numbness, which has worsened over the course of the last 6 months. With the cold weather, he has been much more inactive. He has gained a bit of the weight back that he lost. He had lost over 100 pounds, but now is only about 55 pounds below his maximum, he has gained about 40 of it back. In conjunction with the weight gain, there has been an increase in pain down into the legs, but carries most of his weight forward. We talked briefly today about the possibility of considering weight loss surgery. He has had some abdominal issues. Apparently, he had an ischemic bowel and had to have several feet of small intestine removed due to ischemia. If he was going to have surgery, I would have him see Dr. Felipe Ospina at [facility] who specializes in complex surgeries and his number was provided. I have also discussed with him the possibility of repeating another MRI scan to see if there have been any significant changes. X-ray was ordered and I think appropriate giving us worsening pain. PHYSICAL EXAMINATION: He is pleasant, a bit discouraged today by his increasing pain and lack of mobility. Blood pressure is 114/70, heart rate 90, respirations 16. BMI 42.0. He is able to move from sitting to standing position. His gait, what I would describe, is waddling from side to side. He has pain in both hips, both knees where he has osteoarthritis. A large bulky brace is on the right knee. In the straight leg raising position, there is pain at about 45 degrees in the supine position. This radiates down into the L5 distribution. There is tenderness around the hip. Pain with internal and external rotation is not found. There does not appear to be arthritic pain on either side. Sensation is diminished below the knees bilaterally in a [address] [address] PAIN MANAGEMENT CONSULTATION Name: NEYMAR CARMICHAEL II Room #: REG [facility] Aman#: [id number] Admission: 05/21/18 ������������������ Attend Phys: Trevor Frausto MD Discharge: ������������������ Date of : 48 Report #: [id number] distribution consistent with neuropathy. IMPRESSION: 1. Chronic low back pain with radiculopathy, now worse on the right. It has alternated from right to left. 2. Morbid obesity. 3. Diffuse multi-joint osteoarthritis. 4. Management of high risk medications. I renewed [place] 10/325 one tablet 4 times daily for him under terms of our agreement. He will carefully safeguard the medication. His MME is 40. He denies any significant side effects. We have checked his prescriptions on the prescription drug monitoring program from [place] and [place] and there are no unexpected entries. A urine drug screen will be performed at my discretion. Followup visit is planned after his MRI. I did give him the name of Dr. Ospina. We will send off a referral for consideration of bariatric surgery. If we make a decision, that is the appropriate step after the spring. ��������������������������������������������� ���������������������������������������� By: ��������������������������������������������� [id number] Trevor Frausto MD /nt
[2018-05-21 09:49] VITALS: BP 114/70
--- NOTE | 2018-05-21 10:27 | NUR ---
Pain Clinic Assessment: 1. History of Osteoarthritis: YES BILAT HANDS BILAT HIPS AND KNEES History of Rheumatoid Arthritis: Not Applicable 2. Height: 5 ft. 11 in. 180.3 cm. Weight: 301.0 lb. oz. 136.533 kg. Patient's BMI: 42.0 3. Vital Signs: BP: 114/70 Pulse: 90 Resp: 16 Temp: 02 Sat: 96 ECG Mon: 4. Pain Intensity: 5-6 5. Fall Risk: Dizziness: N Needs help standing or walking: Y Fallen in the last 3 months: Y Fall risk comments: 6. Patient on Blood Thinner: None 7. History of Hypertension: Y 8. Opioid Therapy greater than 6 weeks: Y Opiate Contract Signed: 06/02/16 9. Risk Assessment Tool Provided: 1-LOW RISK 10. Functional Assessment Tool: 58 11. Recreational Drug Use: Never Drug Type: Tobacco Use: Never Smoker Tobacco Type: Amount or Packs/day: How Many Years: Alcohol Use: No Frequency: Quant:
== END ==
LOC: PAIN 07:06
DX: M54.16 Radiculopathy, lumbar region (principal); G89.29 Other chronic pain; E66.01 Morbid (severe) obesity due to excess calories; M19.90 Unspecified osteoarthritis, unspecified site; Z79.899 Other long term (current) drug therapy

== ENCOUNTER → 2018-06-20 | Outpatient (CLI) | payer BC, OTHER ==
[~2018-06-20] VITALS: Ht 180.3 cm; Wt 144.9 kg
[~2018-06-20] MED LIST changes: +DOXYCYCLINE 10100 MG PO
[2018-06-20 10:02] VITALS: BP 129/79
--- NOTE | 2018-06-20 10:17 | NUR ---
Pain Clinic Assessment: 1. History of Osteoarthritis: YES BILAT HANDS BILAT HIPS AND KNEES History of Rheumatoid Arthritis: Not Applicable 2. Height: 5 ft. 11 in. 180.3 cm. Weight: 319.4 lb. oz. 144.879 kg. Patient's BMI: 44.6 3. Vital Signs: BP: 129/79 Pulse: 84 Resp: 20 Temp: 02 Sat: 97 ECG Mon: 4. Pain Intensity: 10 WALKING 5. Fall Risk: Dizziness: N Needs help standing or walking: Y Fallen in the last 3 months: N Fall risk comments: 6. Patient on Blood Thinner: None 7. History of Hypertension: Y 8. Opioid Therapy greater than 6 weeks: Y Opiate Contract Signed: 06/02/16 9. Risk Assessment Tool Provided: 1-LOW RISK 10. Functional Assessment Tool: 58 11. Recreational Drug Use: Never Drug Type: Tobacco Use: Never Smoker Tobacco Type: Amount or Packs/day: How Many Years: Alcohol Use: No Frequency: Quant:
--- NOTE | 2018-07-13 00:33 | HPC ---
[facility] [place] [address] [place] [address] PAIN MANAGEMENT CONSULTATION Name: NEYMAR CARMICHAEL II Room #: REG [facility] Aman#: [id number] Admission: 06/20/18 ������������������ Attend Phys: Sincere Milton MD Discharge: ������������������ Date of : 48 Report #: [id number] THIS REPORT FOR: //name// CC: Patrizia Milton DATE OF SERVICE: 06/20/2018 CHIEF COMPLAINT: Here for epidural injection. "My pain has really gotten worse." HISTORY: The patient is a 67-year-old gentleman. He is a patient of Dr. Trevor Frausto. He has been followed in the pain clinic for quite some time. Dr. Frausto is out on vacation at this juncture. The patient's pain has become so problematic he feels that he cannot wait until Jett returns undergo an injection. He has returned to the pain clinic because of the pain and discomfort, which is quite significant. It is radiating down into his right low back area involving his buttocks down into the right knee. He has returned for an epidural steroid injection. ALLERGIES: SHELLFISH. CURRENT MEDICATIONS: Doxycycline 100 mg, hydrocodone 10/325 q. 6 hours p.r.n., ibuprofen 200 mg q. 6 hours p.r.n., zolpidem 10 mg at bedtime, lisinopril 10 mg, Sherri 180 mg b.i.d., and aspirin 81 mg. PAIN CLINIC ASSESSMENT/PQRS: 1. History of osteoarthritis. The patient has arthritic changes and pain in his hands as well as in his hips and knees. He is not being treated for rheumatoid arthritis. 2. Height 5 feet 11 inches, weight 319 pounds, BMI is 44.6. 3. Vital Signs: Blood pressure 129/79, pulse 84, respiratory rate 20, room air saturation 97%. 4. Pain intensity 10 while walking. 5. Fall risk. The patient has not fallen in the last 3 months. 6. Blood thinner. The patient is not on a blood thinning medication. 7. Hypertension. The patient has been treated for hypertension. 8. Opioids greater than 6 weeks. The patient receives his medication from the Pain Clinic. 9. Risk assessment tool, low for opioid risk. 10. Functional assessment tool 58 of 70. 11. Recreational drug use. The patient denies use of recreational drugs. 12. Tobacco: The patient has never smoked. 13. Alcohol: The patient denies use of alcoholic beverages. PHYSICAL EXAMINATION: [facility] [address] [place] [address] PAIN MANAGEMENT CONSULTATION Name: NEYMAR CARMICHAEL II Room #: REG [facility]#: [id number] Admission: 06/20/18 ������������������ Attend Phys: Sincere Milton MD Discharge: ������������������ Date of : 48 Report #: [id number] GENERAL: The patient is a well-developed, well-nourished, obese white male. He appears his stated age. He is alert and oriented x 3. His affect is appropriate. Speech is fluent. HEENT: Normocephalic, atraumatic. Extraocular eye muscles intact. NECK: Without adenopathy or JVD. HEART: Regular rate. ABDOMEN: Protuberant. Bowel sounds present. LUNGS: Clear to auscultation. EXTREMITIES: The patient has a brace on his left knee. He has had knee replacement. He complains of pain and discomfort that is radiating down into his low back area on the right in the L5 dermatomal distribution. IMPRESSION: Lumbar radiculopathy radiating down into the right L5-S1 dermatomal distribution. RECOMMENDATIONS: We discussed treatment options with the patient. Risks and benefits of an epidural steroid injection were discussed with the patient. They include but are not limited to infection, worsening pain, no improvement in pain, nerve damage, and paralysis. The patient elects to proceed. PROCEDURE NOTE: The patient was taken to the procedure area. He was then assisted in getting on examination table. His back was sterilely prepped with a Betadine solution. A 0.25% bupivacaine was infiltrated. Using a 25-gauge needle at the L5-S1 area on the right. A 17-gauge Tuohy with loss of resistance technique was used to gain access to the epidural space. There was no CSF, heme or paresthesia. Total of 80 mg Depo-Medrol, 40 mg triamcinolone and 2 mL of 0.25% bupivacaine was injected. The patient tolerated the procedure well. Total of 19 seconds fluoroscopy time was used. The patient's pain decreased from 10 to 5 at the time of discharge. He had no complications. He will follow up in the future as needed with Dr. Frausto. We would like to thank you for letting us participate in his care. We hope he continues to improve. ��������������������������������������������� <ELECTRONICALLY SIGNED> ���������������������������������������� By: Sincere Milton MD ��������������������������������������������� 07/13/18 0033 [id number] [id number] Sincere Milton MD /ivy
== END | disposition home or self-care (01) ==
LOC: PAIN 06-07 08:44
DX: M54.16 Radiculopathy, lumbar region (principal); G89.29 Other chronic pain; I10 Essential (primary) hypertension; E66.09 Other obesity due to excess calories; Z68.41 Body mass index [BMI] 40.0-44.9, adult; Z79.82 Long term (current) use of aspirin; Z79.891 Long term (current) use of opiate analgesic; Z79.899 Other long term (current) drug therapy

== ENCOUNTER → 2018-09-06 | Outpatient (CLI) | payer BC, OTHER ==
[~2018-09-06] VITALS: Ht 180.3 cm; Wt 147.9 kg
[2018-09-06 08:57] VITALS: BP 140/72
--- NOTE | 2018-09-06 09:01 | NUR ---
Pain Clinic Assessment: 1. History of Osteoarthritis: YES BILAT HANDS BILAT HIPS AND KNEES History of Rheumatoid Arthritis: Not Applicable 2. Height: 5 ft. 11 in. 180.3 cm. Weight: 326.0 lb. oz. 147.873 kg. Patient's BMI: 45.5 3. Vital Signs: BP: 140/72 Pulse: 101 Resp: 20 Temp: 02 Sat: 97 ECG Mon: 4. Pain Intensity: 7 5. Fall Risk: Dizziness: N Needs help standing or walking: Y Fallen in the last 3 months: Y Fall risk comments: 6. Patient on Blood Thinner: None 7. History of Hypertension: Y 8. Opioid Therapy greater than 6 weeks: Y Opiate Contract Signed: 06/02/16 9. Risk Assessment Tool Provided: 1-LOW RISK 10. Functional Assessment Tool: 58 11. Recreational Drug Use: Never Drug Type: Tobacco Use: Never Smoker Tobacco Type: Amount or Packs/day: How Many Years: Alcohol Use: No Frequency: Quant:
--- NOTE | 2018-09-06 15:41 | HPC ---
[facility] [address] [place] [address] PAIN MANAGEMENT CONSULTATION Name: NEYMAR CARMICHAEL II Room #: REG Joseline Newton#: [id number] Admission: 09/06/18 ������������������ Attend Phys: Samantha Saleh Discharge: ������������������ Date of : 48 Report #: [id number] THIS REPORT FOR: //name// CC: Samantha Woody DATE OF SERVICE: 09/06/2018 CHIEF COMPLAINT: Low back pain with radiculopathy. HISTORY OF PRESENT ILLNESS: This is a very pleasant 67-year-old that returns to the pain clinic today for refill of his medications. He is disappointed that he is still having significant pain after his recent back surgery about a month ago. He tells us that he thought his pain would get better right after surgery and he has been disappointed that he still continues to have pain. His pain score is 7/10 today, mostly located in his lumbar spine that radiates into his right leg to his knee. He does have some numbness in his toes, though on his left foot. The pain is sharp, constant, burning pain; worse with walking and sitting; better with his medications. He tells me that he has just started physical therapy this week. He uses heat and ice as well. He would like a refill of his medications today. ALLERGIES: SHELLFISH and MILK. CURRENT MEDICATIONS: Hydrocodone 10/325 q.i.d., doxycycline, ibuprofen, Ambien, lisinopril, Sherri, aspirin and Tylenol. PQRS: 1. He has osteoarthritis in his bilateral hands, hips and knees. Denies any rheumatoid arthritis. 2. Height is 5 feet 11 inches, weight is 326, BMI is 45. 3. Vital signs: Blood pressure 140/72, pulse is 101, respirations 20, oxygen sat is 97, pain score 7/10. 4. Fall risk: Denies dizziness. He does use a cane for walking, has fallen in the last 3 months. 5. He is not on any blood thinners. He does take medicine for hypertension. 6. His opioid therapy is greater than 6 weeks; therefore, an opioid signed contract is on the chart. 7. His risk assessment is low. His functional status is 58/70. 8. He does not use recreational drugs. He is not a smoker and does not drink alcohol. We did check the prescription monitoring system. The patient is filling appropriately for his medications on time for them today and tells me that he does safeguard them. [address] [address] PAIN MANAGEMENT CONSULTATION Name: NEYMAR CARMICHAEL II Room #: [facility] Aman#: [id number] Admission: 09/06/18 ������������������ Attend Phys: Samantha Saleh Discharge: ������������������ Date of : 48 Report #: [id number] PHYSICAL EXAMINATION: GENERAL: This is a well-developed, well-nourished, obese white male, who appears his stated age. He is alert and orientated. His affect is appropriate. His speech is fluent. HEENT: Normocephalic, atraumatic. Extraocular eye muscles are intact. ABDOMEN: Protuberant. Bowel sounds are present. EXTREMITIES: He has a brace on his left knee. Uses a cane with ambulation. Complains of pain in his lumbar back region radiating down his right leg, the posterior aspect to the top of his thigh to his knee following an L5 dermatomal distribution. Does have some numbness in his left toes. Lower extremity strength judged to be 5/5 bilaterally. ASSESSMENT: 1. Lumbar radiculopathy following the right L5-S1 dermatomal distribution. 2. Morbid obesity. 3. Diffuse multi-joint osteoarthritis. 4. Management of high risk medications under terms of written opioid agreement. We reviewed the fact that opiate medications are being used to provide analgesia adequate to support activities of daily living, not attempting to achieve a specific pain score on the 0-10 Visual Analog Scale. The current opiate medications are providing sufficient analgesia to allow the patient to participate in activities of daily living. The patient is not exhibiting any aberrant behavior suggestive of drug diversion. The patient is not having any adverse reactions to medications. The patient is not suffering from daytime somnolence or mental acuity changes. The patient is managing opiate-induced constipation with appropriate anvi-dzi-qbsuhkn agents and dietary considerations. The patient was counseled on concern for caution with operating a motor vehicle while using opiate medications. A physical exam was performed and the patient's functional status was evaluated. All patients with back pain were advised against the bed rest greater than 4 days and were advised to return to normal activities. Pain score assessment was noted and the treatment plan was reviewed with the patient. All current medications, both prescribed and OTC were reviewed and reconciled on the electronic medical record. Tobacco screening was accomplished and smoking cessation was advised when indicated. BMI was noted and diet/exercise modification was recommended for all patients following outside normal parameters. I reviewed with the patient today their responsibilities to safeguard prescription medications, reviewed their responsibility to utilize medications only as prescribed by the physician. They are to seek and receive pain medications only from 1 physician group ([facility]). They are to use 1 pharmacy and keep the clinic informed if they change pharmacies. Their [address] [address] PAIN MANAGEMENT CONSULTATION Name: NEYMAR CARMICHAEL II Room #: REG CHI Holder#: [id number] Admission: 09/06/18 ������������������ Attend Phys: Samantha LEE Delfino Discharge: ������������������ Date of : 49 Report #: [id number] responsibilities include making followup visits in a timely fashion and to avoid abrupt discontinuation of medication usage. Their responsibilities further include bringing their medications (bottles from the pharmacy with residual pills) to the visit for possible confirmation of pill counts and the patient understands it is their responsibility to submit to random drug screens to ensure both that the medications prescribed are present, and that no other controlled substances are present. All prescriptions provided today were generated electronically. PLAN: 1. We discussed treatment options with the patient today. Dr. Frausto was present for part of this discussion. We explained to him that it takes a while for the body to heal after surgery, at least 3-6 months and it has just been a month since his surgery. He needs to give his body time and nerves to regenerate and heal. The patient verbalizes understanding. He thought that he would be better after surgery and was disappointed, but he does understand that it is now going to take time. 2. We discussed physical therapy and using heat and ice, he just recently started this today. I encouraged him to continue that and to do his exercises at home. 3. We did talk briefly about radiofrequency ablation. He was having questions. I explained to him that that is not an option right now while his body is to heal, but maybe in the future. 4. Script was given for his hydrocodone , #120 for today, 4-week and 8-week. This places the patient at 40 morphine milligram milliequivalents a day according to the CDC guidelines. As stated above, Dr. Frausto did see the patient and collaborated care today. ��������������������������������������������� <ELECTRONICALLY SIGNED> ���������������������������������������� By: Samantha Saleh ��������������������������������������������� 09/06/18 [id number] Samantha Saleh /nt
== END ==
LOC: PAIN 06:46
DX: M54.16 Radiculopathy, lumbar region (principal); E66.01 Morbid (severe) obesity due to excess calories; M19.90 Unspecified osteoarthritis, unspecified site; Z79.891 Long term (current) use of opiate analgesic; Z68.42 Body mass index [BMI] 45.0-49.9, adult

== ENCOUNTER → 2018-11-29 | Outpatient (CLI) | payer BC, OTHER ==
[~2018-11-29] VITALS: Ht 180.3 cm; Wt 146.3 kg
--- NOTE | ~2018-11-29 | HPC ---
[facility] [place] [address] PAIN MANAGEMENT CONSULTATION Name: AMOLGORDYSARAHI Narvaez II Room #: REG CHI Glory.#: [id number] Admission: 11/29/18 ������������������ Attend Phys: Trevor Frausto MD Discharge: ������������������ Date of : 48 Report #: [id number] THIS REPORT FOR: //name// CC: Patrizia Frausto DATE OF SERVICE: 11/29/2018 Followup visit for chronic low back pain with radiculopathy. The patient returns to Pain Clinic in followup. Surgery has been helpful for his right sciatica. He now; however, has pain in the left. Walking, he complains of pain radiating numbness into his leg and foot. Occasionally during the walk, he will get weakness with footdrop on the left. This generally recovers. I do not have his operative report, but I believe he had a right hemilaminectomy. This would be a reason why he continues to have symptoms on the left. He has remained on hydrocodone 10/325, number 120 tablets per month, and I have agreed to renew this medication for him today under terms of our agreement. There have been no red flag behaviors. The prescription drug monitoring program has been reviewed and there are no unexpected entries. He has an opioid agreement signed, and we have periodically done urine drug screen to make sure that there are no unexpected substances being consumed and that the drugs provided are being taken. He reports that he is grateful for the pain relief that the medications provide that improves his day-to-day ability to ambulate and exercise, and have other activities. He carefully safeguards his medication. There are no significant side effects. PQRS REVIEW: 1. Diffuse osteoarthritis involving bilateral hands, hips, and knees. 2. History of obesity with a BMI of 45. He has been counseled and works hard on his weight. 3. Blood pressure 136/82, heart rate 93, respirations 16. 4. Pain intensity today is 6/10. 5. He needs help walking and standing and uses a cane. He is careful and has not fallen, but would be considered in my book a fall risk. 6. No blood thinners. 7. History of hypertension. Medications provided by primary care physician and noted. All medications were reviewed and reconciled. 8. He is on an opioid agreement signed, last in May 2016. 9. He is at low risk for addiction by the opioid risk tool scoring 1. 10. His functional assessment score is 53. He still has significant impairment [facility] [address] [place] [address] PAIN MANAGEMENT CONSULTATION Name: NEYMAR CARMICHAEL II Room #: [facility]#: [id number] Admission: 11/29/18 ������������������ Attend Phys: Trevor Frausto MD Discharge: ������������������ Date of : 48 Report #: [id number] of day-to-day activities related to pain. 11. Denies use of tobacco and alcohol. PHYSICAL EXAMINATION: Vital signs as noted. He moves independently from sitting to standing position, but is morbidly obese with a large panniculus. He walks with antalgic features using his cane for support. His gait is somewhat waddling. He has scars in his back and bilateral knees from previous surgeries. Localized tenderness is noted. Straight leg raising is painful on the left reproducing symptoms following an L4-L5 distribution. There is no focal weakness. IMPRESSION: 1. Low back pain with radiculopathy, post-laminectomy syndrome. 2. Management of high risk medications under terms of written agreement. We reviewed his responsibilities with medications, and I have given him 3 months of medication. I plan to see him back in the Pain Clinic at that time. ��������������������������������������������� ���������������������������������������� By: ��������������������������������������������� [id number] Trevor Frausto MD /nt
[2018-11-29 10:31] VITALS: BP 136/82
--- NOTE | 2018-11-29 10:47 | NUR ---
Pain Clinic Assessment: 1. History of Osteoarthritis: B/L HANDS B/L HIPS AND KNEES History of Rheumatoid Arthritis: Not Applicable 2. Height: 5 ft. 11 in. 180.3 cm. Weight: 322.6 lb. oz. 146.331 kg. Patient's BMI: 45.0 3. Vital Signs: BP: 136/82 Pulse: 93 Resp: 16 Temp: 02 Sat: 96 ECG Mon: 4. Pain Intensity: 6 5. Fall Risk: Dizziness: N Needs help standing or walking: Y Fallen in the last 3 months: N Fall risk comments: 6. Patient on Blood Thinner: None 7. History of Hypertension: Y 8. Opioid Therapy greater than 6 weeks: Y Opiate Contract Signed: 06/02/16 9. Risk Assessment Tool Provided: LOW RISK 03/22 10. Functional Assessment Tool: 11. Recreational Drug Use: Never Drug Type: Tobacco Use: Never Smoker Tobacco Type: Amount or Packs/day: How Many Years: Alcohol Use: No Frequency: Quant:
== END ==
LOC: PAIN 06:42
DX: M54.16 Radiculopathy, lumbar region (principal); M96.1 Postlaminectomy syndrome, not elsewhere classified

== ENCOUNTER → 2019-01-21 | Outpatient (CLI) | payer BC, OTHER ==
[~2019-01-21] VITALS: Ht 180.3 cm; Wt 147.7 kg
--- NOTE | ~2019-01-21 | HPC ---
[facility] [place] [address] [place] [address] PAIN MANAGEMENT CONSULTATION Name: NEYMAR CARMICHAEL II Room #: REG [facility]I Glory.#: [id number] Admission: 01/21/19 Attend Phys: Trevor Frausto MD Discharge: Date of : 48 Report #: [id number] THIS REPORT FOR: //name// CC: Patrizia Frausto DATE OF SERVICE: 01/21/2019 Followup visit for chronic pain today, cervical radiculopathy radiating into the right arm. This is a new complaint today for the patient. I have seen him for longstanding pain in his low back radiating into his left leg. Today, he complains bitterly of pain 8-9/10 in his neck that radiates down into the right arm in a radicular distribution. He also has pain that radiates in a referred pattern along the medial aspect of the scapula from the neck down into the mid back. Pain is bad enough that it is hard for him to move, lay down or even take a deep breath or cough. MEDICATIONS: Hydrocodone 10/325 under terms of written agreement. He is provided 120 tablets per month for an MME of 40. He uses ibuprofen, zolpidem, lisinopril, fexofenadine, and aspirin. He has a longstanding history of difficulty with weight. His BMI is continuing to go up each time I see him it seems. BMI today 45.4. At one time, he had lost a substantial amount of weight, but he has gained it all back in part due to his challenges with mobility. PHYSICAL EXAMINATION: GENERAL: He is a pleasant gentleman. He is 5 feet, 11 inches, 325 pounds, BMI of 45.4. VITAL SIGNS: Blood pressure 128/73, heart rate 83, respirations 14, O2 sat 96. Pain intensity 8-9/10. NECK: Examination of the neck reveals decreased range of motion, particularly extension, which reproduces radicular symptoms. He also has pain with lateral tilt to the right and rotation. CHEST: Clear. CARDIAC: Rhythm is regular. ABDOMEN: His abdomen is distended and he has a panniculus from his extreme weight. EXTREMITIES: He has tenderness about his right knee and wears a soft support brace. He has tenderness in his left knee as well as had a replacement there. Gait is antalgic. IMPRESSION: [facility] [address] [place] [address] PAIN MANAGEMENT CONSULTATION Name: NEYMAR CARMICHAEL II Room #: REG CHI Newton#: [id number] Admission: 01/21/19 Attend Phys: Trevor Frausto MD Discharge: Date of : 49 Report #: [id number] 1. Chronic intractable pain, multiple pain generators. 2. Morbid obesity. 3. Cervical radiculopathy, now with clear pain radiating in the C5-C6 distribution. RECOMMENDATIONS: Cervical epidural injection and renewal of pain medications under terms of written agreement. Review of medications shows that he has medications that will carry him through until February. We just performed the epidural injection today. DESCRIPTION OF PROCEDURE: After informed consent, he was taken to the fluoroscopic suite for treatment. The patient was placed in the prone position. Skin was prepped with ChloraPrep. Skin was anesthetized over the C6-C7 interspace. Using biplanar fluoroscopic views, I advanced needle into the epidural space using loss of resistance technique. There was no blood or CSF aspirated. A 1 mL of Omnipaque was injected. Good spread of dye observed into the epidural space, was followed by 3 mL of 0.5% lidocaine mixed with 80 mg of triamcinolone. He tolerated the procedure well and was observed for 45 minutes and discharged. Followup visit planned on an as needed basis. By: [id number] Trevor Frausto MD /nt
[2019-01-21 13:35] VITALS: BP 128/73
--- NOTE | 2019-01-21 13:47 | NUR ---
Pain Clinic Assessment: 1. History of Osteoarthritis: B/L HANDS B/L HIPS AND KNEES History of Rheumatoid Arthritis: Not Applicable 2. Height: 5 ft. 11 in. 180.3 cm. Weight: 325.6 lb. oz. 147.692 kg. Patient's BMI: 45.4 3. Vital Signs: BP: 128/73 Pulse: 83 Resp: 14 Temp: 02 Sat: 96 ECG Mon: 4. Pain Intensity: 8-9 5. Fall Risk: Dizziness: N Needs help standing or walking: Y Fallen in the last 3 months: N Fall risk comments: 6. Patient on Blood Thinner: None 7. History of Hypertension: Y 8. Opioid Therapy greater than 6 weeks: Y Opiate Contract Signed: 06/02/16 9. Risk Assessment Tool Provided: LOW RISK 03/22 10. Functional Assessment Tool: 11. Recreational Drug Use: Never Drug Type: Tobacco Use: Never Smoker Tobacco Type: Amount or Packs/day: How Many Years: Alcohol Use: No Frequency: Quant:
== END | disposition home or self-care (01) ==
LOC: PAIN 06:57
DX: M54.12 Radiculopathy, cervical region (principal); G89.29 Other chronic pain; E66.01 Morbid (severe) obesity due to excess calories; Z98.890 Other specified postprocedural states; Z79.899 Other long term (current) drug therapy; Z68.42 Body mass index [BMI] 45.0-49.9, adult; Z79.82 Long term (current) use of aspirin; Z79.891 Long term (current) use of opiate analgesic

== ENCOUNTER → 2019-02-25 | Outpatient (CLI) | payer BC, OTHER ==
[~2019-02-25] VITALS: Ht 180.3 cm; Wt 151.0 kg
[2019-02-25 13:46] VITALS: BP 122/67
--- NOTE | 2019-02-25 14:12 | NUR ---
Pain Clinic Assessment: 1. History of Osteoarthritis: B/L HANDS B/L HIPS AND KNEES History of Rheumatoid Arthritis: Not Applicable 2. Height: 5 ft. 11 in. 180.3 cm. Weight: 232.8 lb. oz. 105.598 kg. Patient's BMI: 32.5 3. Vital Signs: BP: 122/67 Pulse: 88 Resp: 16 Temp: 02 Sat: 97 ECG Mon: 4. Pain Intensity: 6 5. Fall Risk: Dizziness: N Needs help standing or walking: Y Fallen in the last 3 months: N Fall risk comments: 6. Patient on Blood Thinner: None 7. History of Hypertension: Y 8. Opioid Therapy greater than 6 weeks: Y Opiate Contract Signed: 06/02/16 9. Risk Assessment Tool Provided: LOW RISK 03/22 10. Functional Assessment Tool: 11. Recreational Drug Use: Never Drug Type: Tobacco Use: Never Smoker Tobacco Type: Amount or Packs/day: How Many Years: Alcohol Use: No Frequency: Quant:
--- NOTE | 2019-02-26 12:56 | HPC ---
[facility] [address] [place] [address] PAIN MANAGEMENT CONSULTATION Name: NEYMAR CARMICHAEL II Room #: REG [facility] Aman#: [id number] Admission: 02/25/19 Attend Phys: Samantha Saleh Discharge: Date of : 48 Report #: [id number] THIS REPORT FOR: //name// CC: Samantha Frausto MD DATE OF SERVICE: 02/25/2019 CHIEF COMPLAINT: Chronic pain, cervical radiculopathy and low back pain. HISTORY OF PRESENT ILLNESS: This is a very pleasant 68-year-old gentleman who returns to the pain clinic today for refill of his medications. He reports that his pain is located in multiple areas. He feels like the worst, is in his lower back down his left side that radiates into his foot. He does have ongoing cervical neck pain that radiates into his right arm and he does have knee pain as well. He reports a pain score of 6/10 today. It is a constant, sharp, aching pain that is worse with prolonged standing and sitting. He feels his medications are very beneficial as well as periodic epidurals. He is wanting to schedule an epidural steroid injection for his lumbar spine before the end of the year, if he is able. He did recently have a cervical epidural in January, which he found that it was beneficial in controlling his pain. He reports 100% relief and still continues to have relief from that injection. ALLERGIES: SHELLFISH and MILK PRODUCTS. CURRENT LIST OF MEDICATIONS: Hydrocodone 10/325, ibuprofen, Ambien, Zestril, Sherri and aspirin. PQRS: 1. He has diffuse osteoarthritis involving his hands, hips and knees. Denies any rheumatoid arthritis. 2. Height is 5 feet 11, his weight is 332, BMI is 45. 3. Vital signs; 122/67, pulse is 88, respirations 16, oxygen sat is 97. 4. Pain score 6/10. 5. Denies dizziness. Does need help walking, uses a cane and has not fallen in the last 3 months. 6. The patient is not on any blood thinners, but does take medicines for hypertension. 7. Opiate therapy is greater than 6 weeks; therefore, an opioid signed contract is on the chart. Risk assessment is low. Functional assessment is 53/70. 8. Recreational drug use, he denies. He is not a smoker and does not drink alcohol. According to the prescription monitoring system, the [place] [address] PAIN MANAGEMENT CONSULTATION Name: NEYMAR CARMICHAEL II Room #: [facility]#: [id number] Admission: 02/25/19 Attend Phys: Samantha Saleh Discharge: Date of : 48 Report #: [id number] December, but the patient states he filled his last medications on 02/13/2019. He is not due today for a refill, but trying to be proactive in his medication management fills. According to the CDC guidelines, his morphine milliequivalents is 17. The patient reports that he safeguards his meds at all times. PHYSICAL EXAMINATION: GENERAL: This is alert and orientated 68-year-old gentleman who appears his stated age, placing his current pain score today at 6/10. HEENT: Normocephalic, atraumatic. Extraocular eye muscles are intact. MUSCULOSKELETAL: He walks with antalgic features using a cane. He moves independently from the sitting to standing position, though very slow. He is morbidly obese with a large pannus. He has tenderness in his low back, radiates down his left leg following the L5-S1 dermatomal distribution. Lower extremity strength judged to be 5/5 bilaterally. IMPRESSION: 1. Low back pain with radiculopathy, post-laminectomy syndrome. 2. Management of high risk medications under terms of written opioid agreement. 3. Morbid obesity. 4. Diffuse multi-joint osteoarthritis. We reviewed the fact that opiate medications are being used to provide analgesia adequate to support activities of daily living, not attempting to achieve a specific pain score on the 0-10 Visual Analog Scale. The current opiate medications are providing sufficient analgesia to allow the patient to participate in activities of daily living. The patient is not exhibiting any aberrant behavior suggestive of drug diversion. The patient is not having any adverse reactions to medications. The patient is not suffering from daytime somnolence or mental acuity changes. The patient is managing opiate-induced constipation with appropriate wwyf-ovd-sypvaho agents and dietary considerations. The patient was counseled on concern for caution with operating a motor vehicle while using opiate medications. PLAN: 1. We discussed treatment options with the patient today. The patient finds his medication beneficial in controlling his pain. He is able to take a half a tablet on an occasion when his pain is not as severe, he is able therefore to last longer than 30 days between fills of his medication. I encouraged him to take the lowest most effective dose, if we are able to decrease it to 3 tablets that would be beneficial per day and even less prior to having his knee operated on within this year sometime. He does not have a date scheduled for this surgery at the present. 2. We will refill his hydrocodone 10/325, 4 a day according to the CDC guidelines, this is 40 morphine milliequivalents per day. 3. The patient is requesting a lumbar epidural steroid injection prior to the [facility] [address] [place] [address] PAIN MANAGEMENT CONSULTATION Name: NEYMAR CARMICHAEL II Room #: REG [facility] Newton#: [id number] Admission: 02/25/19 Attend Phys: Samantha Saleh Discharge: Date of : 48 Report #: [id number] end of the year. We will see if Dr. Trevor Frausto is available with an appointment. He reports that the injections are very beneficial in controlling his pain. His previous lumbar epidural was in . The patient is seen in collaboration with Dr. Trevor Frausto today. We will see the patient back hopefully for an injection within the next 2 weeks. <ELECTRONICALLY SIGNED> By: Samantha Saleh 02/26/19 [id number] Samantha Saleh /ivy
== END ==
LOC: PAIN 06:54
DX: M54.16 Radiculopathy, lumbar region (principal); M96.1 Postlaminectomy syndrome, not elsewhere classified; E66.09 Other obesity due to excess calories; M19.90 Unspecified osteoarthritis, unspecified site

== ENCOUNTER → 2019-03-11 | Outpatient (CLI) | payer BC, OTHER ==
[~2019-03-11] VITALS: Ht 180.3 cm; Wt 148.1 kg
[2019-03-11 15:00] VITALS: BP 135/74
--- NOTE | 2019-03-11 15:46 | NUR ---
Pain Clinic Assessment: 1. History of Osteoarthritis: B/L HANDS B/L HIPS AND KNEES History of Rheumatoid Arthritis: Not Applicable 2. Height: 5 ft. 11 in. 180.3 cm. Weight: 326.6 lb. oz. 148.145 kg. Patient's BMI: 45.6 3. Vital Signs: BP: 135/74 Pulse: 88 Resp: 20 Temp: 02 Sat: 95 ECG Mon: 4. Pain Intensity: 6 5. Fall Risk: Dizziness: N Needs help standing or walking: Y Fallen in the last 3 months: Y Fall risk comments: 6. Patient on Blood Thinner: None 7. History of Hypertension: Y 8. Opioid Therapy greater than 6 weeks: Y Opiate Contract Signed: 06/02/16 9. Risk Assessment Tool Provided: LOW RISK 03/22 10. Functional Assessment Tool: 11. Recreational Drug Use: Never Drug Type: Tobacco Use: Never Smoker Tobacco Type: Amount or Packs/day: How Many Years: Alcohol Use: No Frequency: Quant:
--- NOTE | 2019-03-18 12:21 | HPC ---
[facility] [place] [address] PAIN MANAGEMENT CONSULTATION Name: NEYMAR CARMICHAEL II Room #: REG CHI Susi.#: [id number] Admission: 03/11/19 Attend Phys: Trevor Frausto MD Discharge: Date of : 48 Report #: [id number] THIS REPORT FOR: //name// CC: REE Frausto DATE OF SERVICE: 03/11/2019 Followup visit for low back pain with radiculopathy, post laminectomy syndrome. The patient is a 68-year-old gentleman who is here today for epidural injection and renewal of pain medication. He has hydrocodone 10/325 one tablet 4 times daily as needed to control pain. He has been on this medication for some time and finds it helpful in improving his activities of daily living, particularly weightbearing and chores around the house. He denies side effects and safeguards his medication with good caution. No evidence of addictive behaviors. Today, the pain is severe and radiates into both legs. It follows an L5-S1 distribution. MRI is reviewed from 05/2018 showing severe right neural foraminal stenosis at L4-L5 as well as focal subligamentous disk protrusion at L4-L5 resulting in a mass effect upon the descending nerve roots. PQRS: 1. He complains of bilateral hands, hips and knees arthritis. 2. His BMI is 45, blood pressure 135/74, heart rate 88, respirations 95. 3. Pain intensity is 6. 4. He needs help standing and walking and he has fallen once in the last 3 months, considered a fall risk by weight. 5. He denies blood thinning medications, but is treated for hypertension. I reviewed all of his medications prior to performance of any injection today. 6. He denies use of tobacco and alcohol. 7. His medication is provided under terms of written opioid agreement signed in 2017 and he has low risk by the opioid risk tool of addiction. PHYSICAL EXAMINATION: Pleasant, morbidly obese gentleman. He moves with difficulty from sitting to standing position. His gait is antalgic. He has pain across his lumbosacral segment, pain with forward flexion, extension and rotation. Straight leg raising is suggestive of radiculopathy bilaterally following an L5-S1 distribution. IMPRESSION: Lumbar radiculopathy. [address] [address] PAIN MANAGEMENT CONSULTATION Name: NEYMAR CARMICHAEL II Room #: [facility] CHI Newton#: [id number] Admission: 03/11/19 Attend Phys: Trevor Frausto MD Discharge: Date of : 48 Report #: [id number] RECOMMENDATION: Epidural steroid injection under fluoroscopic guidance, L4-L5. PROCEDURE: He was taken to fluoroscopic suite, placed prone, skin prepped with ChloraPrep. Skin anesthetized over the L4-L5 interspace and a 20-gauge Tuohy epidural needle advanced in the epidural space using loss of resistance. There was no blood or CSF aspirated. A 1 mL of Omnipaque was injected. Good spread of dye was observed into the epidural space using AP and lateral projections. It was then followed by 3 mL of 0.5% lidocaine mixed with 80 mg of triamcinolone. He tolerated the procedure well. There were no complications. Pain was reduced by 75% in recovery room. We will see him back in the pain clinic as needed. Prescriptions were renewed for him for release in 4 and 8 weeks. <ELECTRONICALLY SIGNED> By: Trevor Frausto MD 03/18/19 1221 [id number] Trevor Frausto MD /nt
== END | disposition home or self-care (01) ==
LOC: PAIN 06:55
DX: M54.16 Radiculopathy, lumbar region (principal); E66.01 Morbid (severe) obesity due to excess calories; M99.73 Connective tissue and disc stenosis of intervertebral foramina of lumbar region; Z68.42 Body mass index [BMI] 45.0-49.9, adult; Z88.8 Allergy status to other drugs, medicaments and biological substances; Z91.013 Allergy to seafood; Z79.82 Long term (current) use of aspirin; Z79.899 Other long term (current) drug therapy

== ENCOUNTER → 2019-05-20 | Outpatient (CLI) | payer BC, OTHER ==
[~2019-05-20] VITALS: Ht 180.3 cm; Wt 123.1 kg
--- NOTE | ~2019-05-20 | HPC ---
[facility] [place] [address] PAIN MANAGEMENT CONSULTATION Name: NEYMAR CARMICHAEL Brice COHN Room #: REG CHI SusanneRafael.#: [id number] Admission: 05/20/19 Attend Phys: Trevor Frausto MD Discharge: Date of : 48 Report #: [id number] THIS REPORT FOR: cc: Patrizia Woody MD,Patrizia Frausto,Trevor Chris MD ~ CC: Patrizia Frausto DATE OF SERVICE: 05/20/2019 Followup visit for post-laminectomy syndrome with radiculopathy. The patient returns to pain clinic today for epidural injection. His last injection was performed on 03/11/2019. Pain was reduced modestly. He would like another injection. He has right neuroforaminal stenosis at L4-L5 and a subligamentous disk protrusion at the same level resulting in a mass effect upon the descending nerve roots. If he does not respond to the injection today, I would consider a transforaminal injection in the future. PQRS: Positive for bilateral hip, knee and hand arthritis. BMI of 45, blood pressure 129/79, heart rate 84, respirations 18. Pain intensity in today's visit is 6/10. Pain radiates into the right leg. He has not fallen in the last 3 months. Denies blood thinning medications, but is treated for hypertension. Denies use of tobacco and alcohol. I provide medications for him under terms of written opioid agreement. There are no unexpected entries in the [facility] prescription drug monitoring program review. He has had no evidence of misuse and safeguards his medication carefully, is grateful for the pain relief and improvement in daily function that medication provides. IMPRESSION: 1. Chronic low back pain with radiculopathy. 2. Obesity. PROCEDURE: Lumbar epidural injection under fluoroscopic guidance. DESCRIPTION OF PROCEDURE: After informed consent, he was taken to the fluoroscopic suite, placed prone, skin prepped with ChloraPrep. Skin anesthetized over the L4-L5 interspace. A 20-gauge Tuohy epidural needle advanced in the epidural space with loss of resistance technique. No blood or CSF aspirated. A 1 mL of Omnipaque injected. Good spread of dye observed in the epidural space to the right of midline, was followed by 3 mL of 0.5% [address] [address] PAIN MANAGEMENT CONSULTATION Name: NEYMAR CARMICHAEL Room #: REG [facility] Newton#: [id number] Admission: 05/20/19 Attend Phys: Trevor Frausto MD Discharge: Date of : 48 Report #: [id number] lidocaine mixed with 80 mg of triamcinolone. He tolerated the procedure well and was observed for 45 minutes and discharged. Follow up as needed. By: [id number] Trevor Frausto MD /nt
[2019-05-20 09:21] VITALS: BP 132/76
--- NOTE | 2019-05-20 09:32 | NUR ---
Pain Clinic Assessment: 1. History of Osteoarthritis: B/L HANDS B/L HIPS AND KNEES History of Rheumatoid Arthritis: Not Applicable 2. Height: 5 ft. 11 in. 180.3 cm. Weight: 271.4 lb. oz. 123.107 kg. Patient's BMI: 37.9 3. Vital Signs: BP: 132/76 Pulse: 89 Resp: 18 Temp: 02 Sat: 97 ECG Mon: 4. Pain Intensity: 6 5. Fall Risk: Dizziness: N Needs help standing or walking: Y Fallen in the last 3 months: N Fall risk comments: 6. Patient on Blood Thinner: None 7. History of Hypertension: Y 8. Opioid Therapy greater than 6 weeks: Y Opiate Contract Signed: 06/02/16 9. Risk Assessment Tool Provided: LOW RISK 03/22 10. Functional Assessment Tool: 11. Recreational Drug Use: Never Drug Type: Tobacco Use: Never Smoker Tobacco Type: Amount or Packs/day: How Many Years: Alcohol Use: No Frequency: Quant:
== END | disposition home or self-care (01) ==
LOC: PAIN 06:44
DX: M54.16 Radiculopathy, lumbar region (principal); M51.26 Other intervertebral disc displacement, lumbar region; M48.061 Spinal stenosis, lumbar region without neurogenic claudication; G89.29 Other chronic pain; E66.09 Other obesity due to excess calories; I10 Essential (primary) hypertension; Z98.890 Other specified postprocedural states; Z79.891 Long term (current) use of opiate analgesic; Z79.899 Other long term (current) drug therapy; Z79.82 Long term (current) use of aspirin; Z68.42 Body mass index [BMI] 45.0-49.9, adult

== ENCOUNTER → 2019-09-05 | Outpatient (CLI) | payer BC, OTHER ==
[~2019-09-05] VITALS: Ht 180.3 cm; Wt 151.0 kg
[2019-09-05 10:38] VITALS: BP 135/78
--- NOTE | 2019-09-05 10:54 | NUR ---
Pain Clinic Assessment: 1. History of Osteoarthritis: B/L HANDS B/L HIPS AND KNEES History of Rheumatoid Arthritis: Not Applicable 2. Height: 5 ft. 11 in. 180.3 cm. Weight: 333.0 lb. oz. 151.048 kg. Patient's BMI: 46.5 3. Vital Signs: BP: 135/78 Pulse: 82 Resp: 20 Temp: 02 Sat: 98 ECG Mon: 4. Pain Intensity: 6 5. Fall Risk: Dizziness: N Needs help standing or walking: Y Fallen in the last 3 months: N Fall risk comments: 6. Patient on Blood Thinner: None 7. History of Hypertension: Y 8. Opioid Therapy greater than 6 weeks: Y Opiate Contract Signed: 06/02/16 9. Risk Assessment Tool Provided: LOW RISK 03/22 10. Functional Assessment Tool: 11. Recreational Drug Use: Never Drug Type: Tobacco Use: Never Smoker Tobacco Type: Amount or Packs/day: How Many Years: Alcohol Use: No Frequency: Quant:
--- NOTE | 2019-09-13 15:51 | HPC ---
[facility] [address] [place] [address] PAIN MANAGEMENT CONSULTATION Name: NEYMAR CARMICHAEL LALIT Room #: REG [facility] Glory.#: [id number] Admission: 09/05/19 Attend Phys: Trevor Frausto MD Discharge: Date of : 48 Report #: [id number] THIS REPORT FOR: cc: Patrizia Woody MD,Patrizia Frausto,Trevor Chris MD ~ CC: Patrizia Frausto DATE OF SERVICE: 09/05/2019 CHIEF COMPLAINT: Low back pain radiating into both legs, status post laminectomy. The patient is here today for a repeat epidural injection as he has responded nicely to injections performed about every 3 months. He has neural foraminal stenosis, particularly at L4-L5. This is caused by a disk protrusion that affects the descending nerve roots. At his last visit, we talked about the possibility of a transforaminal epidural injection in the future. We would have to go bilateral since he has pain on both sides. I think given his good response to recent injections, we will continue using midline approach. All medications were reviewed and reconciled. New medications were ordered today for him under terms of written opioid agreement. His MME is 40. He carefully safeguards his medication. I have checked his use on the prescription drug monitoring program information and there are no unexpected entries. Urine drug screens will be performed at my discretion. His pain is definitely improved with functional improvements noted with medicine versus being off them. PQRS REVIEW: Positive for significant arthritis, bilateral hips and knees. He also complains of pain in his hands with intermittent arthritic discomfort. BMI 46.5, blood pressure 135/78, heart rate 82, respirations 20, pain intensity 6/10. He needs help walking and standing mostly due to his weight. His BMI is 46 and rising. He is not on blood thinners, but is under treatment for hypertension. I provide his medication for him under terms of written opioid agreement, which we reviewed today. His opioid risk tool score is 1/3. His functional assessment score is 53, so there is quite a bit of interference with his day-to-day activities. We talked about the importance of safeguarding all medications. PHYSICAL EXAMINATION: Pleasant gentleman, morbidly obese, moves independently from sitting to standing position, but it is really difficult for him to get up. His gait is markedly antalgic. He has pain across his low back, tenderness [facility] [address] [place] [address] PAIN MANAGEMENT CONSULTATION Name: NEYMAR CARMICHAEL Brice COHN Room #: REG CHI Aman#: [id number] Admission: 09/05/19 Attend Phys: Trevor Frausto MD Discharge: Date of : 48 Report #: [id number] across the scar and positive straight leg raising. IMPRESSION: Chronic intractable low back pain with radiculopathy. PROCEDURE: Lumbar epidural steroid injection L4-L5 under fluoroscopic guidance. PROCEDURE NOTE: After both written and informed consent to include risk of spinal cord damage, increased pain, weakness and dural puncture, the patient was taken to the fluoroscopy suite, placed in the prone position. After sterile prep and drape, a skin wheal with lidocaine was raised. A 4.5 inch needle was inserted in the midline at L4-L5 with good loss to resistance. Negative aspiration for cerebrospinal fluid or blood was noted. Then 1 mL of Omnipaque under biplanar fluoroscopy showed good spread within the epidural space. This was followed with 80 mg of triamcinolone plus 3 mL of 0.5% preservative-free lidocaine was then injected to flush the needle; it was removed. The patient was monitored for an appropriate period of time and discharged in good and stable condition. <ELECTRONICALLY SIGNED> By: Trevor Frausto MD 09/13/19 1551 1700 1949 Trevor Frausto MD /nt
== END | disposition home or self-care (01) ==
LOC: PAIN 07:58
PROVIDERS: ATTEND Anesthesiology Pain Medicine
DX: M54.16 Radiculopathy, lumbar region (principal); G89.29 Other chronic pain; M48.061 Spinal stenosis, lumbar region without neurogenic claudication; I10 Essential (primary) hypertension; M19.90 Unspecified osteoarthritis, unspecified site; Z98.890 Other specified postprocedural states; Z79.899 Other long term (current) drug therapy

== ENCOUNTER → 2019-11-11 | Outpatient (CLI) | payer BC, OTHER ==
[~2019-11-11] VITALS: Ht 177.8 cm; Wt 151.9 kg
[2019-11-11 09:49] VITALS: BP 148/83
--- NOTE | 2019-11-11 10:00 | NUR ---
Pain Clinic Assessment: 1. History of Osteoarthritis: B/L HANDS B/L HIPS AND KNEES History of Rheumatoid Arthritis: Not Applicable 2. Height: 5 ft. 10 in. 177.8 cm. Weight: 334.8 lb. oz. 151.865 kg. Patient's BMI: 48.0 3. Vital Signs: BP: 148/83 Pulse: 90 Resp: 18 Temp: 02 Sat: 97 ECG Mon: 4. Pain Intensity: 4-5 5. Fall Risk: Dizziness: N Needs help standing or walking: N Fallen in the last 3 months: Y Fall risk comments: 6. Patient on Blood Thinner: None 7. History of Hypertension: Y 8. Opioid Therapy greater than 6 weeks: Y Opiate Contract Signed: 06/02/16 9. Risk Assessment Tool Provided: LOW RISK 03/22 10. Functional Assessment Tool: 11. Recreational Drug Use: Never Drug Type: Tobacco Use: Never Smoker Tobacco Type: Amount or Packs/day: How Many Years: Alcohol Use: No Frequency: Quant:
--- NOTE | 2019-11-14 11:44 | HPC ---
[facility] [address] [place] [address] PAIN MANAGEMENT CONSULTATION Name: GORDY CARMICHAELSARAHI Narvaez II Room #: REG CHI SkeltonSusiRafaelSusi#: [id number] Admission: 11/11/19 Attend Phys: Trevor Frausto MD Discharge: Date of : 48 Report #: [id number] THIS REPORT FOR: cc: Patrizia Woody MD,Patrizia Frausto,Trevor Chris MD ~ CC: Patrizia Frausto DATE OF SERVICE: 11/11/2019 Followup visit for chronic low back pain and radiculopathy. The patient is a longstanding patient of the pain clinic. He has severe lumbar radiculopathy and low back pain. He has had previous back surgery. He is here today for an epidural injection. He recently fell while out in the garden and also tripped. Both falls sound to be accidental and not related to lightheadedness, dizziness or weakness. It is prone a bit fallen because he is morbidly obese with a BMI of 46.5. When he starts to go down, he goes down quickly. Ribs are feeling better. He has been using ibuprofen and also some hydrocodone provided to him under terms of written opioid agreement. I carefully safeguard his medicines. He is allowed 4 tablets a day for an MME of 40. He has denied any significant side effects and understands his critical role in providing safe use of the medicines. We will continue to provide medicines for him as noted under his opioid agreement. PQRS is positive for osteoarthritis, multiple joints including hips, knees and hands. He wears a brace on his right knee. BMI 48, blood pressure 148/83, heart rate 90, respirations 18, O2 sat 97. Pain intensity is 4-5/10. He has fallen as noted in the last 2 months, mostly related to instability, tripping on the carpet and being on uneven ground. We talked about using care when he is on uneven ground. He continues to try and exercise. He has a history of hypertension and is under treatment. Medications were reviewed and reconciled. Also, reviewed his opioid agreement and his [facility] prescription drug monitoring program information. His ORT score is 1. His functional assessment score today 57 very high interference of pain with day-to-day activities. Denies tobacco and alcohol. Physical exam is noted. Low back is tender with pain with forward flexion and extension. He does not complain of too much leg pain today. Pain is bilateral. He has a scar from previous surgery. No redness, inflammation or infection. IMPRESSION: Low back pain with degenerative disk disease, post-laminectomy syndrome. PROCEDURE: Lumbar epidural injection under fluoroscopic guidance. [address] [address] PAIN MANAGEMENT CONSULTATION Name: NEYMAR CARMICHAEL II Room #: REG [facility] Newton#: [id number] Admission: 11/11/19 Attend Phys: Trevor Frausto MD Discharge: Date of : 48 Report #: [id number] DESCRIPTION OF PROCEDURE: After informed consent, he was taken to the fluoroscopic suite, placed prone, skin prepped with ChloraPrep. Skin anesthetized over the L3-L4 interspace. A 20-gauge Tuohy epidural needle advanced first attempt in the epidural space with loss of resistance. There was no blood or CSF aspirated. A 1 mL of Omnipaque injected. Good spread of dye observed into the epidural space followed by 3 mL of 0.5% lidocaine mixed with 80 mg of triamcinolone. He tolerated the procedure well and was observed for 45 minutes and discharged. Followup visit planned as needed for medication. <ELECTRONICALLY SIGNED> By: Trevor Frausto MD 11/14/19 1144 [id number] [id number] Trevor Frausto MD /nt
== END | disposition home or self-care (01) ==
LOC: PAIN 06:55
PROVIDERS: ATTEND Anesthesiology Pain Medicine
DX: M51.16 Intervertebral disc disorders with radiculopathy, lumbar region (principal); M96.1 Postlaminectomy syndrome, not elsewhere classified; G89.29 Other chronic pain; I10 Essential (primary) hypertension; M19.90 Unspecified osteoarthritis, unspecified site; Z98.890 Other specified postprocedural states; Z79.899 Other long term (current) drug therapy; Z79.891 Long term (current) use of opiate analgesic

== ENCOUNTER → 2020-01-20 | Outpatient (CLI) | payer BC, OTHER ==
[~2020-01-20] VITALS: Ht 180.3 cm; Wt 154.0 kg
[2020-01-20 09:36] VITALS: BP 143/85
--- NOTE | 2020-01-20 09:44 | NUR ---
Pain Clinic Assessment: 1. History of Osteoarthritis: B/L HANDS B/L HIPS AND KNEES History of Rheumatoid Arthritis: Not Applicable 2. Height: 5 ft. 11 in. 180.3 cm. Weight: 339.4 lb. oz. 153.951 kg. Patient's BMI: 47.4 3. Vital Signs: BP: 143/85 Pulse: 95 Resp: 18 Temp: 02 Sat: 94 ECG Mon: 4. Pain Intensity: 6-7 5. Fall Risk: Dizziness: N Needs help standing or walking: N Fallen in the last 3 months: N Fall risk comments: 6. Patient on Blood Thinner: None 7. History of Hypertension: Y 8. Opioid Therapy greater than 6 weeks: Y Opiate Contract Signed: 06/02/16 9. Risk Assessment Tool Provided: LOW RISK 03/22 10. Functional Assessment Tool: 11. Recreational Drug Use: Never Drug Type: Tobacco Use: Never Smoker Tobacco Type: Amount or Packs/day: How Many Years: Alcohol Use: No Frequency: Quant:
== END | disposition home or self-care (01) ==
LOC: PAIN 07:00
PROVIDERS: ATTEND Anesthesiology Pain Medicine
DX: M54.16 Radiculopathy, lumbar region (principal); G89.29 Other chronic pain; I10 Essential (primary) hypertension; M19.90 Unspecified osteoarthritis, unspecified site; E66.01 Morbid (severe) obesity due to excess calories; Z98.890 Other specified postprocedural states; Z79.899 Other long term (current) drug therapy; Z68.42 Body mass index [BMI] 45.0-49.9, adult; Z79.82 Long term (current) use of aspirin

== ENCOUNTER → 2020-05-18 | Outpatient (CLI) | payer BC, OTHER ==
[~2020-05-18] VITALS: Ht 177.8 cm; Wt 145.2 kg
[2020-05-18 14:48] VITALS: BP 135/80
--- NOTE | 2020-05-18 14:52 | NUR ---
Pain Clinic Assessment: 1. History of Osteoarthritis: B/L HANDS B/L HIPS AND KNEES History of Rheumatoid Arthritis: Not Applicable 2. Height: 5 ft. 10 in. 177.8 cm. Weight: 320.0 lb. oz. 145.152 kg. Patient's BMI: 45.9 3. Vital Signs: BP: 135/80 Pulse: 94 Resp: 18 Temp: 02 Sat: 97 ECG Mon: 4. Pain Intensity: 9 5. Fall Risk: Dizziness: N Needs help standing or walking: Y Fallen in the last 3 months: Y Fall risk comments: fell about 9 days ago- sprained ankle 6. Patient on Blood Thinner: None 7. History of Hypertension: Y 8. Opioid Therapy greater than 6 weeks: Y Opiate Contract Signed: 06/02/16 9. Risk Assessment Tool Provided: LOW RISK 03/22 10. Functional Assessment Tool: 11. Recreational Drug Use: Never Drug Type: Tobacco Use: Never Smoker Tobacco Type: Amount or Packs/day: How Many Years: Alcohol Use: No Frequency: Quant:
--- NOTE | 2020-05-19 08:28 | HPC ---
[facility] [address] [address] PAIN MANAGEMENT CONSULTATION Name: GORDY CARMICHAELSARAHI Narvaez II Room #: REG [facility] Aman#: [id number] Admission: 05/18/20 Attend Phys: Samantha Saleh Discharge: Date of : 48 Report #: [id number] THIS REPORT FOR: cc: Patrizia Woody MD, Lisa A. MD Hocker,Samantha LEE ~ DATE OF SERVICE: 05/18/2020 CHIEF COMPLAINT: Chronic back pain with radiculopathy and left ankle pain. HISTORY OF PRESENT ILLNESS: The patient returns to the pain clinic today for renewal of his opioid medications, but most pressing for him today is his left ankle. He reports he fell slightly over a week ago, going into his garage, and twisted his ankle. He did see an orthopedic clinic where they informed him he had torn a tendon. He is worried today because it is still quite swollen and painful. He would like us to look at his ankle. The patient also reports ongoing low back pain. He reports from the epidural, Dr. Trevor Frausto performed in January, a 65% relief for 2-3 weeks and then his pain has slowly gradually returned, but the fall last week did increase his pain all over. Today complaining of pain in his shoulders, hips, and low back as well as left ankle. Today, he rates his pain as a 9/10. He is in a boot on the left ankle and using a walker. Standing exacerbates his pain tremendously. He has been trying to elevate his foot, but any activity causes severe pain. He is in need of medication refills today. He did report taking a few extra pain pills since he has fallen. ALLERGIES: IODINE, SHELLFISH. CURRENT LIST OF MEDICATIONS: Hydrocodone 10/325 p.r.n., ibuprofen, Ambien, Zestril, Sherri, and aspirin. PQRS: 1. He has osteoarthritic changes in his hands, hips, and knees. Denies any rheumatoid arthritis. 2. Height is 5 feet 10 inches, weight is 320, BMI is 45. 3. Vital signs 135/80, pulse is 94, respirations 18, oxygen sat is 97%. 4. Pain score is 9/10. 5. Denies dizziness. Does need assistance with ambulation using a walker today and has fallen in the last week. He is not on any blood thinners, but does take medicine for hypertension. 6. Opioid therapy is greater than 6 weeks; therefore, an opioid signed contract is on the chart. Risk assessment is low. Functional assessment is 49/70. 7. Recreational drug use, he denies. He is not a smoker and does not drink alcohol. [address] [address] PAIN MANAGEMENT CONSULTATION Name: NEYMAR CARMICHAEL II Room #: REG [facility] Newton#: [id number] Admission: 05/18/20 Attend Phys: Samantha Saleh Discharge: Date of : 48 Report #: [id number] According to the prescription monitoring system, the patient is filling appropriately for his medications. His morphine mEq according to the CDC guidelines is 40. We will check a random drug screen on him at his next opioid visit. PHYSICAL EXAMINATION: GENERAL: This is an alert and orientated, morbidly obese 69-year-old gentleman who appears his stated age, placing his pain score 10/10. He is a good historian. HEENT: Normocephalic, atraumatic. Extraocular eye muscles are intact. He is wearing a mask. MUSCULOSKELETAL: He moves with significant difficulty from the sitting to standing position. He has a boot on his left leg. His left ankle has 2-3+ edema with ecchymosis noted on all toes and the lateral aspect of his ankle, tender to the touch presently. He has an antalgic gait. Pain is across the lumbosacral segment of his lumbar spine. Pain with forward flexion, extension, and rotation. Pain follows the L5-S1 dermatomal distribution. IMPRESSION: 1. Lumbar radiculopathy. 2. Morbid obesity. 3. Opioid dependency requiring medications under written agreement. 4. Possible deltoid ligament tear of his left ankle. We reviewed the fact that opiate medications are being used to provide analgesia adequate to support activities of daily living, not attempting to achieve a specific pain score on the 0-10 Visual Analog Scale. The current opiate medications are providing sufficient analgesia to allow the patient to participate in activities of daily living. The patient is not exhibiting any aberrant behavior suggestive of drug diversion. The patient is not having any adverse reactions to medications. The patient is not suffering from daytime somnolence or mental acuity changes. The patient is managing opiate-induced constipation with appropriate [id number] agents and dietary considerations. The patient was counseled on concern for caution with operating a motor vehicle while using opiate medications. A physical exam was performed and the patient's functional status was evaluated. All patients with back pain were advised against the bed rest greater than 4 days and were advised to return to normal activities. Pain score assessment was noted and the treatment plan was reviewed with the patient. All current medications, both prescribed and OTC were reviewed and reconciled on the electronic medical record. Tobacco screening was accomplished and smoking cessation was advised when indicated. BMI was noted and diet/exercise modification was recommended for all patients following outside normal parameters. [address] [place] [address] PAIN MANAGEMENT CONSULTATION Name: AMOLNEYMAR II Room #: REG [facility].#: [id number] Admission: 05/18/20 Attend Phys: Samantha JESUS Buenrostrobo Discharge: Date of : 48 Report #: [id number] I reviewed with the patient today their responsibilities to safeguard prescription medications, reviewed their responsibility to utilize medications only as prescribed by the physician. They are to seek and receive pain medications only from 1 physician group ( [facility]). They are to use 1 pharmacy and keep the clinic informed if they change pharmacies. Their responsibilities include making followup visits in a timely fashion and to avoid abrupt discontinuation of medication usage. Their responsibilities further include bringing their medications (bottles from the pharmacy with residual pills) to the visit for possible confirmation of pill counts and the patient understands it is their responsibility to submit to random drug screens to ensure both that the medications prescribed are present, and that no other controlled substances are present. All prescriptions provided today were generated electronically. PLAN: 1. We discussed treatment options with the patient today. I encouraged him to keep his left ankle elevated as often as possible utilizing ice and rest. Dr. Trevor Frausto did evaluate him as well and re-emphasized the following: Explaining that it may take months for the swelling to dissipate. I encouraged the patient to keep his boot on and follow up with the orthopedic in 4-6 weeks as they suggested. 2. I encouraged the patient to take ibuprofen 2 tablets up to three times a day as needed. 3. The patient will continue his hydrocodone 325 four times a day. He does utilize a few extra-strength Tylenol with the pain pill, but instructed not to take more than 3000 mg per Tylenol a day. 4. Script sent electronically by Dr. Trevor Frausto to his pharmacy for 3 months. He also collaborated care today. 5. The patient will return as needed for followup of epidural steroid injection, which he does glean benefit from or for opioid medications as needed. Thank you patient is seen today in collaboration with Dr. Trevor Frausto. <ELECTRONICALLY SIGNED> By: Samantha Saleh 05/19/20 [id number] Samantha Saleh /nt
== END ==
LOC: PAIN 07:01
PROVIDERS: ATTEND Clinical Nurse Specialist Adult Health
DX: M54.16 Radiculopathy, lumbar region (principal); E66.01 Morbid (severe) obesity due to excess calories; Z79.01 Long term (current) use of anticoagulants; Z79.899 Other long term (current) drug therapy; Z79.82 Long term (current) use of aspirin

== ENCOUNTER → 2020-07-30 | Outpatient (CLI) | payer BC, OTHER ==
[~2020-07-30] VITALS: Ht 177.8 cm; Wt 144.2 kg
[2020-07-30 13:41] VITALS: BP 132/803
--- NOTE | 2020-07-30 13:52 | NUR ---
Pain Clinic Assessment: 1. History of Osteoarthritis: B/L HANDS B/L HIPS AND KNEES History of Rheumatoid Arthritis: Not Applicable 2. Height: 5 ft. 10 in. 177.8 cm. Weight: 318.0 lb. oz. 144.244 kg. Patient's BMI: 45.6 3. Vital Signs: BP: 132/803 Pulse: 92 Resp: 20 Temp: 02 Sat: 97 ECG Mon: 4. Pain Intensity: 7-8 5. Fall Risk: Dizziness: Needs help standing or walking: Fallen in the last 3 months: Fall risk comments: fell about 9 days ago- sprained ankle 6. Patient on Blood Thinner: None 7. History of Hypertension: Y 8. Opioid Therapy greater than 6 weeks: Y Opiate Contract Signed: 06/02/16 9. Risk Assessment Tool Provided: LOW RISK 03/22 10. Functional Assessment Tool: 49/ 11. Recreational Drug Use: Never Drug Type: Tobacco Use: Never Smoker Tobacco Type: Amount or Packs/day: How Many Years: Alcohol Use: No Frequency: Quant:
== END | disposition home or self-care (01) ==
LOC: PAIN 10:52
PROVIDERS: ATTEND Anesthesiology Pain Medicine
DX: M54.16 Radiculopathy, lumbar region (principal); G89.29 Other chronic pain; I10 Essential (primary) hypertension; M19.90 Unspecified osteoarthritis, unspecified site; E66.01 Morbid (severe) obesity due to excess calories; Z98.890 Other specified postprocedural states; Z79.899 Other long term (current) drug therapy; Z68.42 Body mass index [BMI] 45.0-49.9, adult

== ENCOUNTER → 2020-10-22 | Outpatient (CLI) | payer BC, OTHER ==
[~2020-10-22] VITALS: Ht 177.8 cm; Wt 154.0 kg
[~2020-10-22] MED LIST changes: +TYLENOL EXTRA500 MG PO
[2020-10-22 09:48] VITALS: BP 130/75
--- NOTE | 2020-10-22 10:02 | NUR ---
Pain Clinic Assessment: 1. History of Osteoarthritis: B/L HANDS B/L HIPS AND KNEES History of Rheumatoid Arthritis: Not Applicable 2. Height: 5 ft. 10 in. 177.8 cm. Weight: 339.6 lb. oz. 154.042 kg. Patient's BMI: 48.7 3. Vital Signs: BP: 130/75 Pulse: 88 Resp: 20 Temp: 02 Sat: 96 ECG Mon: 4. Pain Intensity: 7 5. Fall Risk: Dizziness: N Needs help standing or walking: Y Fallen in the last 3 months: Y Fall risk comments: fell about 9 days ago- sprained ankle 6. Patient on Blood Thinner: None 7. History of Hypertension: Y 8. Opioid Therapy greater than 6 weeks: Y Opiate Contract Signed: 06/02/16 9. Risk Assessment Tool Provided: LOW RISK 03/22 10. Functional Assessment Tool: 11. Recreational Drug Use: Never Drug Type: Tobacco Use: Never Smoker Tobacco Type: Amount or Packs/day: How Many Years: Alcohol Use: No Frequency: Quant:
== END | disposition home or self-care (01) ==
LOC: PAIN 07:09
PROVIDERS: ATTEND Anesthesiology Pain Medicine
DX: M54.16 Radiculopathy, lumbar region (principal); G89.29 Other chronic pain; E66.01 Morbid (severe) obesity due to excess calories; I10 Essential (primary) hypertension; M19.90 Unspecified osteoarthritis, unspecified site; Z98.890 Other specified postprocedural states; Z79.899 Other long term (current) drug therapy

== ENCOUNTER → 2021-01-18 | Outpatient (CLI) | payer BC, OTHER ==
[~2021-01-18] VITALS: Ht 177.8 cm; Wt 154.7 kg
[2021-01-18 09:06] VITALS: BP 144/83
== END ==
LOC: PAIN 06:52
PROVIDERS: ATTEND Clinical Nurse Specialist Adult Health
DX: M54.16 Radiculopathy, lumbar region (principal); E66.01 Morbid (severe) obesity due to excess calories; Z79.82 Long term (current) use of aspirin; Z79.899 Other long term (current) drug therapy; Z88.8 Allergy status to other drugs, medicaments and biological substances

== ENCOUNTER → 2021-01-28 | Outpatient (CLI) | payer BC, OTHER ==
[~2021-01-28] VITALS: Ht 177.8 cm; Wt 155.9 kg
[2021-01-28 10:28] VITALS: BP 138/79
--- NOTE | 2021-01-28 10:46 | NUR ---
Pain Clinic Assessment: 1. History of Osteoarthritis: B/L HANDS B/L HIPS AND KNEES History of Rheumatoid Arthritis: Not Applicable 2. Height: 5 ft. 10 in. 177.8 cm. Weight: 343.6 lb. oz. 155.856 kg. Patient's BMI: 49.3 3. Vital Signs: BP: 138/79 Pulse: 90 Resp: 20 Temp: 02 Sat: 96 ECG Mon: 4. Pain Intensity: 5 5. Fall Risk: Dizziness: N Needs help standing or walking: Y Fallen in the last 3 months: Y Fall risk comments: fell about 9 days ago- sprained ankle 6. Patient on Blood Thinner: None 7. History of Hypertension: Y 8. Opioid Therapy greater than 6 weeks: Y Opiate Contract Signed: 06/02/16 9. Risk Assessment Tool Provided: LOW RISK 1 10. Functional Assessment Tool: 49/70 11. Recreational Drug Use: Never Drug Type: Tobacco Use: Never Smoker Tobacco Type: Amount or Packs/day: How Many Years: Alcohol Use: No Frequency: Quant:
== END | disposition home or self-care (01) ==
LOC: PAIN 09:48
PROVIDERS: ATTEND Anesthesiology Pain Medicine
DX: M47.26 Other spondylosis with radiculopathy, lumbar region (principal); M96.1 Postlaminectomy syndrome, not elsewhere classified; G89.29 Other chronic pain; I10 Essential (primary) hypertension; M19.90 Unspecified osteoarthritis, unspecified site; E66.01 Morbid (severe) obesity due to excess calories; Z98.890 Other specified postprocedural states; Z79.899 Other long term (current) drug therapy; Z68.41 Body mass index [BMI] 40.0-44.9, adult

== ENCOUNTER → 2021-04-22 | Outpatient (CLI) | payer BC, OTHER ==
[~2021-04-22] VITALS: Ht 177.8 cm; Wt 153.9 kg
[2021-04-22 13:04] VITALS: BP 117/60
--- NOTE | 2021-04-22 13:20 | NUR ---
Pain Clinic Assessment: 1. History of Osteoarthritis: B/L HANDS B/L HIPS AND KNEES History of Rheumatoid Arthritis: Not Applicable 2. Height: 5 ft. 10 in. 177.8 cm. Weight: 339.2 lb. oz. 153.861 kg. Patient's BMI: 48.7 3. Vital Signs: BP: 117/60 Pulse: 86 Resp: 20 Temp: 02 Sat: 97 ECG Mon: 4. Pain Intensity: 7-8 5. Fall Risk: Dizziness: N Needs help standing or walking: Y Fallen in the last 3 months: N Fall risk comments: fell about 9 days ago- sprained ankle 6. Patient on Blood Thinner: None 7. History of Hypertension: Y 8. Opioid Therapy greater than 6 weeks: Y Opiate Contract Signed: 06/02/16 9. Risk Assessment Tool Provided: LOW RISK 1 10. Functional Assessment Tool: 49/70 11. Recreational Drug Use: Never Drug Type: Tobacco Use: Never Smoker Tobacco Type: Amount or Packs/day: How Many Years: Alcohol Use: No Frequency: Quant:
== END ==
LOC: PAIN 09:29
PROVIDERS: ATTEND Clinical Nurse Specialist Adult Health
DX: G89.29 Other chronic pain (principal); M47.26 Other spondylosis with radiculopathy, lumbar region; M96.1 Postlaminectomy syndrome, not elsewhere classified; M19.90 Unspecified osteoarthritis, unspecified site; E66.9 Obesity, unspecified; Z88.0 Allergy status to penicillin; Z88.8 Allergy status to other drugs, medicaments and biological substances; Z79.899 Other long term (current) drug therapy

== ENCOUNTER → 2021-05-03 | Outpatient (CLI) | payer BC, OTHER ==
[~2021-05-03] VITALS: Ht 177.8 cm; Wt 158.5 kg
[2021-05-03 09:05] VITALS: BP 146/73
--- NOTE | 2021-05-03 09:18 | NUR ---
Pain Clinic Assessment: 1. History of Osteoarthritis: B/L HANDS B/L HIPS AND KNEES History of Rheumatoid Arthritis: Not Applicable 2. Height: 5 ft. 10 in. 177.8 cm. Weight: 349.4 lb. oz. 158.487 kg. Patient's BMI: 50.1 3. Vital Signs: BP: 146/73 Pulse: 95 Resp: 20 Temp: 02 Sat: 98 ECG Mon: 4. Pain Intensity: 6 5. Fall Risk: Dizziness: N Needs help standing or walking: Y Fallen in the last 3 months: Y Fall risk comments: fell about 9 days ago- sprained ankle 6. Patient on Blood Thinner: None 7. History of Hypertension: Y 8. Opioid Therapy greater than 6 weeks: Y Opiate Contract Signed: 06/02/16 9. Risk Assessment Tool Provided: LOW RISK 1 10. Functional Assessment Tool: 49/70 11. Recreational Drug Use: Never Drug Type: Tobacco Use: Never Smoker Tobacco Type: Amount or Packs/day: How Many Years: Alcohol Use: No Frequency: Quant:
== END ==
LOC: PAIN 07:41
PROVIDERS: ATTEND Anesthesiology Pain Medicine
DX: M54.16 Radiculopathy, lumbar region (principal); M54.50 Low back pain, unspecified; E66.01 Morbid (severe) obesity due to excess calories; M17.11 Unilateral primary osteoarthritis, right knee; Z79.899 Other long term (current) drug therapy